=== PATIENT | male | born 1940 | race Caucasian/White ===

== ENCOUNTER 2018-03-13 20:50 | Inpatient (IN) | payer MEDICARE ==
[2018-03-13] MEDS ORDERED: ASPIRIN 325 MG TAB PO STA (21:15)
--- NOTE | 2018-03-13 21:15 | ED ---
General Adult HPI - General Chief complaint: Shortness of Breath Stated complaint: SOB Time Seen by Provider: 03/13/18 20:55 Source: patient, RN notes reviewed Mode of arrival: EMS Limitations: no limitations - History of Present Illness Initial comments: Patient is a pleasant 77-year-old male presenting to the emergency Department as a transfer from [facility]. Patient was seen there diagnosed with congestive heart failure and then transfer. Patient states he has been swelling up for the past couple of days. Patient does have cough and dyspnea. Patient has orthopnea. Dyspnea is worse with exertion. No chest pain. No history of cardiac or pulmonary disease. No fevers. Patient did have recent toe amputation - Related Data Home Medications Medication Instructions Recorded Confirmed amLODIPine [Norvasc] 10 mg PO DAILY 03/08/15 03/13/18 metFORMIN HCL 1,000 mg PO BID 03/08/15 03/13/18 Atenolol [Tenormin] 50 mg PO DAILY 10/15/16 03/13/18 Amoxic-Pot Clav 875-125Mg 1 tab PO Q12HR 03/13/18 03/13/18 [Augmentin 875-125] Cyanocobalamin [Vitamin B-12] 500 mcg PO DAILY 03/13/18 03/13/18 Doxycycline Hyclate [Vibramycin] 100 mg PO BID 03/13/18 03/13/18 Ergocalciferol [Vitamin D2] 50,000 unit PO Q7D 03/13/18 03/13/18 Furosemide [Lasix] 40 mg PO DAILY 03/13/18 03/13/18 HYDROcodone/APAP 7.5-325MG [[place] 1 tab PO TID PRN 03/13/18 03/13/18 7.5-325] INSULIN LISPRO (humaLOG) [humaLOG] 4 units SQ AC-TID 03/13/18 03/13/18 Insulin Glargine [Lantus] 12 unit SQ HS 03/13/18 03/13/18 Levothyroxine Sodium [Synthroid] 150 mcg PO DAILY 03/13/18 03/13/18 Lisinopril [Prinivil] 20 mg PO DAILY 03/13/18 03/13/18 Magnesium 200 mg PO DAILY 03/13/18 03/13/18 Spironolactone [Aldactone] 12.5 mg PO DAILY 03/13/18 03/13/18 glipiZIDE [Glucotrol] 5 mg PO DAILY 03/13/18 03/13/18 Allergies Allergy/AdvReac Type Severity Reaction Status Date / Time No Known Allergies Allergy Verified 03/13/18 21:02 Review of Systems ROS Statement: Those systems with pertinent positive or pertinent negative responses have been documented in the HPI. ROS Other: All systems not noted in ROS Statement are negative. Constitutional: Denies: fever Eyes: Denies: eye pain ENT: Denies: ear pain Respiratory: Reports: cough, dyspnea Cardiovascular: Reports: orthopnea, edema. Denies: chest pain Endocrine: Reports: fatigue Gastrointestinal: Denies: abdominal pain Genitourinary: Denies: dysuria Musculoskeletal: Denies: back pain Skin: Denies: rash Neurological: Denies: weakness Past Medical History Past Medical History: Heart Failure, Diabetes Mellitus, Hypertension, Thyroid Disorder Additional Past Medical History / Comment(s): HX POLYPS IN COLON, History of Any Multi-Drug Resistant Organisms: None Reported Past Surgical History: Appendectomy, Joint Replacement Additional Past Surgical History / Comment(s): BILATERAL KNEE REPLACEMENTS,. COLONOSCOPY. amputation of 4th and 5th toes of the left foot. Past Anesthesia/Blood Transfusion Reactions: No Reported Reaction Past Psychological History: No Psychological Hx Reported Smoking Status: Never smoker Past Alcohol Use History: Occasional Past Drug Use History: None Reported - Past Family History Mother Family Medical History: No Reported History General Exam Limitations: no limitations General appearance: alert, in no apparent distress Head exam: Present: atraumatic Eye exam: Present: normal appearance, PERRL ENT exam: Present: normal oropharynx Neck exam: Present: normal inspection Respiratory exam: Present: rales Cardiovascular Exam: Present: regular rate, normal rhythm GI/Abdominal exam: Present: soft. Absent: tenderness Extremities exam: Present: pedal edema. Absent: calf tenderness Back exam: Present: normal inspection Neurological exam: Present: alert Psychiatric exam: Present: normal affect, normal mood Skin exam: Present: normal color Course Vital Signs 03/13/18 20:51 Temperature 97.3 F L Pulse Rate 64 Respiratory 20 Rate Blood Pressure 164/70 O2 Sat by Pulse 96 Oximetry Medical Decision Making - Medical Decision Making Chart reviewed from [facility] including CT and x-ray results and lab results. Case was discussed in detail with Dr. Dorado, who will admit for hospital call. Disposition Clinical Impression: Congestive heart failure Disposition: ADMITTED IP TO THIS HOSP Referrals: Nonstaff,Physician [Primary Care Provider] - 1-2 days Decision Time: 21:15
[2018-03-13 22:22] LABS: Glucose,Whole Blood 101 mg/dL (75-99)
[2018-03-13 22:42] VITALS: BMI 26.4
[2018-03-13] MEDS ORDERED: ATENOLOL 25 MG TAB PO SCH (23:15)
[2018-03-13] MEDS ORDERED: INSULIN DETEMIR 100 UNIT/ML 10 ML VIAL SQ SCH (23:30)
[2018-03-13] MEDS: FUROSEMIDE 10 MG/ML 4 ML VIAL IV SCH (23:37)
[2018-03-13] MEDS: DOXYCYCLINE 50 MG CAP PO SCH (23:54)
[2018-03-13] MEDS: metFORMIN 500 MG TAB PO SCH (23:54)
[2018-03-13] MEDS: AMOXIC-POT CLAV 875-125MG 1 EACH TAB PO SCH (23:55)
[2018-03-14] MEDS: HYDROcodone/APAP 7.5-325MG 1 EACH TAB PO PRN ×3 (01:51→23:14)
[2018-03-14 04:30] LABS: Basophils % (A) 0 %; Eosinophils # (A) 0.2 k/uL (0-0.7); Eosinophils % (A) 2 %; HCT 29.1 % (39.0-53.0); HGB 9.7 gm/dL (13.0-17.5); Lymphocytes # (A) 1.7 k/uL (1.0-4.8); Lymphocytes % (A) 17 %; MCH 28.7 pg (25.0-35.0); MCHC 33.4 g/dL (31.0-37.0); MCV 85.9 fL (80.0-100.0); Monocytes # (A) 0.6 k/uL (0-1.0); Monocytes % (A) 6 %; Neutrophils # (A) 7.4 k/uL (1.3-7.7); Neutrophils % (A) 75 %; Platelet Count 307 k/uL (150-450); RBC 3.39 m/uL (4.30-5.90); RDW 12.8 % (11.5-15.5); WBC 9.9 k/uL (3.8-10.6)
[2018-03-14 04:38] LABS: Calcium 9.1 mg/dL (8.4-10.2); Magnesium 1.8 mg/dL (1.6-2.3); Potassium 4.1 mmol/L (3.5-5.1)
[2018-03-14 05:02] LABS: Creatine Kinase MB 2.1 ng/mL (0.0-2.4); Troponin I <0.012 ng/mL (0.000-0.034)
[2018-03-14 06:04] LABS: Glucose,Whole Blood 76 mg/dL (75-99)
[2018-03-14] MEDS: FUROSEMIDE 10 MG/ML 4 ML VIAL IV SCH ×3 (06:06→21:02)
[2018-03-14] MEDS: LEVOTHYROXINE 75 MCG TAB PO SCH (06:06)
[2018-03-14] MEDS: INSULIN ASPART 100 UNIT/ML 1 ML 10 ML VIAL SQ SCH ×3 (07:11→17:16)
[2018-03-14] MEDS: AMOXIC-POT CLAV 875-125MG 1 EACH TAB PO SCH ×2 (07:52→21:01)
[2018-03-14] MEDS: DOXYCYCLINE 50 MG CAP PO SCH ×2 (07:52→21:01)
[2018-03-14] MEDS: LISINOPRIL 20 MG TAB PO SCH (07:53)
[2018-03-14] MEDS: MAGNESIUM OXIDE 400 MG TAB PO SCH (07:53)
[2018-03-14] MEDS: glipiZIDE 5 MG TAB PO SCH (07:53)
[2018-03-14] MEDS: metFORMIN 500 MG TAB PO SCH ×2 (07:53→21:02)
[2018-03-14] MEDS: CYANOCOBALAMIN 500 MCG TAB PO SCH (07:53)
--- NOTE | 2018-03-14 08:12 | HP ---
HISTORY AND PHYSICAL CHIEF COMPLAINT: A 77-year-old white male presents under transfer [facility] for congestive heart failure. Said this has been going on for the past few days, had cough, dyspnea, orthopnea, no chest pain. No history of cardiac or pulmonary disease. Recent toe amputation by Dr. Bhat. Is admitted for worsening shortness of breath. HOME MEDICATIONS: Norvasc 10 mg daily, metformin 1000 b.i.d., Tenormin 50 daily. He has been on Augmentin 875 1 q.12 hours. B12 500 mcg daily, Vibramycin 100 b.i.d., vitamin D 52205 units every week, Lasix 40 mg daily, [place] 10/325 t.i.d., Humalog 4 units subcu a.c. t.i.d., Lantus 12 units subcu daily, Synthroid 150 mcg daily, Prinivil 20 mg daily, magnesium 200 mg daily, Aldactone 12.5 mg daily, Glucotrol 5 mg daily. ALLERGIES: Negative. REVIEW OF SYSTEMS: Fourteen point review of systems negative except for mentioned in HPI. PAST MEDICAL HISTORY: Heart failure, diabetes mellitus, hypertension, hypothyroidism. PAST SURGICAL HISTORY: Appendectomy, joint replacement. Past surgical history of bilateral knee replacement, colonoscopy, amputation of 4th, 5th toes on the left foot. SOCIAL HISTORY: Does not smoke. No alcohol. No illicit drugs. FAMILY HISTORY: Mother negative. PHYSICAL EXAM: Temp 97.3, pulse 64, respiratory 18-20, blood pressure 160s over 70s, O2 96% on room air. HEENT: Normocephalic atraumatic. Ophthalmologic: Pupils equal, round, reactive to light and accommodation. NEUROLOGIC: Alert and oriented x3. Psych: Fair mood and affect. Cardiovascular S1, S2. GI soft, nontender. Hematologic negative Homans. Vascular normal dorsalis pedis, posterior tibia, radial pulse. ASSESSMENT: 1. Congestive heart failure. 2. Acute hypertension. 3. Diabetes mellitus. 4. Peripheral vascular disease. PLAN: Cardiology is consulted. IV Lasix without pneumonia. Please see further orders. MMODL / IJN: [id number] /
[2018-03-14 08:15] LABS: Albumin 3.3 g/dL (3.5-5.0); Total Bilirubin 0.4 mg/dL (0.2-1.3); Total Protein 5.6 g/dL (6.3-8.2)
[2018-03-14] MEDS ORDERED: amLODIPine 10 MG TAB PO SCH (09:00)
[2018-03-14] MEDS ORDERED: SPIRONOLACTONE 25 MG TAB PO SCH (09:00)
[2018-03-14] MEDS ORDERED: ATENOLOL 50 MG TAB PO SCH (09:00)
[2018-03-14 11:06] LABS: Creatine Kinase MB 2.2 ng/mL (0.0-2.4); Troponin I <0.012 ng/mL (0.000-0.034)
[2018-03-14 11:58] LABS: Hemoglobin A1C 7.2 % (4.0-6.0)
[2018-03-14] MEDS ORDERED: ASPIRIN 325 MG TAB PO SCH (12:00)
--- NOTE | 2018-03-14 12:02 | XR ---
EXAMINATION TYPE: XR chest 2V DATE OF EXAM: 03/14/2018 HISTORY: congestive heart failure. REFERENCE: Chest films dated 03/13/2018. FINDINGS: There are bilateral effusions, greater on the left than the right. There is left basilar ai rspace disease. This appears to have worsened from previous. Heart size is upper limits of normal. Pu lmonary vasculature is normal. There is no interstitial change. IMPRESSION: 1. WORSENING LEFT BASILAR AIRSPACE DISEASE. 2. BILATERAL EFFUSIONS, GREATER ON THE LEFT THAN THE RIGHT.
--- NOTE | 2018-03-14 12:39 | CONS ---
DATE OF CONSULTATION: 03/14/2018 This is a 77-year-old gentleman, well known to me. The patient was seen in the office yesterday, came to the office for wound evaluation. This patient had a left foot 4th and 5th toe amputation done. The wound was healing good and the patient was about to come to follow me in the wound clinic. The patient had a congestive heart failure. The patient has been admitted. EXAMINATION: The patient's brachial, radial and femoral pulses are present. ABDOMEN: Soft, nontender. The patient has bilateral crackles in the lungs. Left foot wound is clean and draining. PLAN: We will use Aquacel Silver every 48 hours and we will continue with local wound care. When patient is stable he can be discharged from the hospital, we will follow in the wound clinic. In the meantime we will continue the local wound care dressing. ORESTES / HOLLY: [id number] / MTDD
--- NOTE | 2018-03-14 12:43 | P.CRDCN ---
History of Present Illness Consult date: 03/14/18 Requesting physician: Martin Dorado Consult reason: congestive heart failure Chief complaint: Shortness of breath and swelling History of present illness: This is a 77-year-old gentleman with history of diabetes, hypertension , hypothyroidism, who recently underwent amputation of 2 toes at [facility]. Apparently was discharged from there and has been progressively more and more short of breath and putting on a significant amount of swelling. According to the , he had been quite short of breath at the [facility] as well. He was treated with IV Lasix and breathing treatments. On discharge according to the was still quite bloated and short of breath, he was discharged with oral Lasix but not with any breathing treatments. Because he became more and more short of breath, he was seen in the primary care doctor's office to see if he could get some breathing treatments. While in the office a chest x-ray was performed which showed congestive heart failure, patient was then sent to [facility] and transferred here. A CT of the chest was performed there which revealed patchy groundglass pneumonitis bilaterally with segmental consolidation in the left lower lobe and right lower lobe with moderate sized bilateral pleural effusions. Troponin 0.017 BNP 3700 sodium 132, potassium 4.1, BUN 30, creatinine 0.4. White blood cell count 12.7, hemoglobin 9.9, platelet count 331. Blood pressure here 136/60 with a heart rate in the 60s, 97% on 3 L of oxygen. Temperature 98.2. Chest x-ray performed here showed worsening left basal air space disease with bilateral effusions greater on the left than the right. EKG shows normal sinus rhythm with nonspecific ST-T wave changes in the anterior leads. White blood cell count is normal, hemoglobin 9.7, platelet count 307. Sodium 132, potassium 4.1, BUN 27, creatinine 1.2. Magnesium 1.8. Troponins are negative 3. BNP level 3270, TSH is normal patient was initiated on IV Lasix in the emergency room. Patient still continues to feel short of breath, continues to have some peripheral edema. Does state that he is feeling somewhat better today, continues to have cough, clear sputum. Past Medical History Past Medical History: Heart Failure, Diabetes Mellitus, Hypertension, Osteoarthritis (OA), Renal Disease, Thyroid Disorder Additional Past Medical History / Comment(s): HX POLYPS IN COLON, History of Any Multi-Drug Resistant Organisms: None Reported Past Surgical History: Appendectomy, Joint Replacement Additional Past Surgical History / Comment(s): BILATERAL KNEE REPLACEMENTS,. COLONOSCOPY. amputation of 4th and 5th toes of the left foot 03/03/2018 Past Anesthesia/Blood Transfusion Reactions: No Reported Reaction Past Psychological History: No Psychological Hx Reported Smoking Status: Never smoker Past Alcohol Use History: Occasional Past Drug Use History: None Reported - Past Family History Mother Family Medical History: No Reported History Medications and Allergies Home Medications Medication Instructions Recorded Confirmed Type amLODIPine [Norvasc] 10 mg PO DAILY 03/08/15 03/13/18 History metFORMIN HCL 1,000 mg PO BID 03/08/15 03/13/18 History Atenolol [Tenormin] 50 mg PO QAM 10/15/16 03/13/18 History Amoxic-Pot Clav 875-125Mg 1 tab PO Q12HR 03/13/18 03/13/18 History [Augmentin 875-125] Atenolol [Tenormin] 25 mg PO PC-SUPPER 03/13/18 03/13/18 History Cyanocobalamin [Vitamin B-12] 500 mcg PO DAILY 03/13/18 03/13/18 History Doxycycline Hyclate [Vibramycin] 100 mg PO BID 03/13/18 03/13/18 History Furosemide [Lasix] 40 mg PO DAILY 03/13/18 03/13/18 History HYDROcodone/APAP 7.5-325MG [[place] 1 tab PO TID PRN 03/13/18 03/13/18 History 7.5-325] INSULIN LISPRO (humaLOG) [humaLOG] 4 units SQ AC-TID 03/13/18 03/13/18 History Insulin Glargine [Lantus] 12 unit SQ HS 03/13/18 03/13/18 History Levothyroxine Sodium [Synthroid] 150 mcg PO DAILY 03/13/18 03/13/18 History Lisinopril [Prinivil] 20 mg PO DAILY 03/13/18 03/13/18 History Magnesium Oxide [Mag-Ox] 250 mg PO DAILY 03/13/18 03/13/18 History Spironolactone [Aldactone] 12.5 mg PO DAILY 03/13/18 03/13/18 History glipiZIDE [Glucotrol] 5 mg PO DAILY 03/13/18 03/13/18 History Allergies Allergy/AdvReac Type Severity Reaction Status Date / Time No Known Allergies Allergy Verified 03/13/18 21:02 Physical Exam Vitals: Vital Signs Temp Pulse Pulse Resp BP BP Pulse Ox 03/14/18 11:24 60 03/14/18 11:09 98.2 F 60 18 136/64 97 03/14/18 09:05 96 03/14/18 08:00 64 03/14/18 07:51 98.4 F 64 18 150/62 96 03/14/18 04:00 98.5 F 66 18 180/75 97 03/14/18 03:26 20 03/14/18 01:18 66 20 03/13/18 21:34 97.5 F L 66 20 174/83 95 03/13/18 20:51 97.3 F L 64 20 164/70 96 Intake and Output 03/13/18 03/14/18 03/14/18 22:59 06:59 14:59 Intake Total 220 480 Output Total 1525 1000 Balance -1305 -520 Intake: IV 20 .9 20 Oral 200 480 Output: Urine 1525 1000 Other: Voiding Method Bedpan # Voids 2 Weight 78.925 kg PHYSICAL EXAMINATION: HEENT: [Head is atraumatic, normocephalic. Pupils equal, round. Neck is supple. There is elevated jugular venous pressure.] HEART EXAMINATION: [Heart S1, S2 normal. No murmur or gallop heard.] CHEST EXAMINATION: Lungs reveal scattered coarse rhonchi with diminished air entry bilaterally ABDOMEN: [ Firm, mildly distended . Bowel sounds are heard. No organomegaly noted]. EXTREMITIES:[ 2+ peripheral pulses with 1+ evidence of peripheral edema , amputation of the fourth and fifth toes on the left foot NEUROLOGIC [patient is awake, alert and oriented -3.] . Results 03/14/18 04:06 03/14/18 04:06 Cardiac Enzymes 03/14/18 03/14/18 03/14/18 Range/Units 04:06 04:06 09:51 AST 21 (17-59) U/L CK-MB (CK-2) 2.1 2.2 (0.0-2.4) ng/mL Troponin I <0.012 <0.012 (0.000-0.034) ng/mL CBC 03/14/18 Range/Units 04:06 WBC 9.9 (3.8-10.6) k/uL RBC 3.39 L (4.30-5.90) m/uL Hgb 9.7 L (13.0-17.5) gm/dL Hct 29.1 L (39.0-53.0) % Plt Count 307 (150-450) k/uL Comprehensive Metabolic Panel 03/14/18 Range/Units 04:06 Sodium 132 L (137-145) mmol/L Potassium 4.1 (3.5-5.1) mmol/L Chloride 92 L (98-107) mmol/L Carbon Dioxide 27 (22-30) mmol/L BUN 27 H (9-20) mg/dL Creatinine 1.20 (0.66-1.25) mg/dL Glucose 67 L (74-99) mg/dL Calcium 9.1 (8.4-10.2) mg/dL AST 21 (17-59) U/L ALT 37 (21-72) U/L Alkaline Phosphatase 88 (38-126) U/L Total Protein 5.6 L (6.3-8.2) g/dL Albumin 3.3 L (3.5-5.0) g/dL Current Medications Generic Name Dose Route Start Last Admin Trade Name Freq PRN Reason Stop Dose Admin Hydrocodone Bitart/Acetaminophen 1 each 03/13/18 23:14 03/14/18 01:51 [place] 7.5-325 PO 1 each TID PRN Administration Pain Amlodipine Besylate 10 mg 03/14/18 09:00 03/14/18 07:52 Norvasc PO 10 mg DAILY KELECHI Administration Amoxicillin/Clavulanate Potassium 1 each 03/13/18 23:15 03/14/18 07:52 Augmentin 875-125 PO 1 each Q12HR KELECHI Administration Aspirin 325 mg 03/14/18 12:00 03/14/18 07:54 Aspirin PO 325 mg DAILY KELECHI Administration Atenolol 25 mg 03/13/18 23:15 03/13/18 23:55 Tenormin PO 25 mg PC-SUPPER KELECHI Administration Atenolol 50 mg 03/14/18 09:00 03/14/18 07:52 Tenormin PO 50 mg QAM KELECHI Administration Cyanocobalamin 500 mcg 03/14/18 09:00 03/14/18 07:53 Vitamin B-12 PO 500 mcg DAILY KELECHI Administration Doxycycline Monohydrate 100 mg 03/13/18 23:15 03/14/18 07:52 Vibramycin PO 100 mg BID KELECHI Administration Furosemide 40 mg 03/13/18 21:15 03/14/18 06:06 Lasix IV 40 mg Q8H KELECHI Administration Glipizide 5 mg 03/14/18 09:00 03/14/18 07:53 Glucotrol PO 5 mg DAILY KELECHI Administration Insulin Aspart 4 unit 03/14/18 07:30 03/14/18 07:11 Novolog SQ 4 unit AC-TID KELECHI Administration Insulin Detemir 12 unit 03/14/18 21:00 Levemir SQ HS [facility] Levothyroxine Sodium 150 mcg 03/14/18 06:30 03/14/18 06:06 Synthroid PO 150 mcg DAILY@0630 KELECHI Administration Lisinopril 20 mg 03/14/18 09:00 03/14/18 07:53 Zestril PO 20 mg DAILY KELECHI Administration Magnesium Oxide 200 mg 03/14/18 09:00 03/14/18 07:53 Mag-Ox PO 200 mg DAILY [facility] Administration Metformin HCl 1,000 mg 03/13/18 23:15 03/14/18 07:53 Glucophage PO 1,000 mg BID KELECHI Administration Sodium Chloride 10 ml 03/14/18 09:00 03/14/18 07:53 Saline Flush IV 10 ml BID KELECHI Administration Spironolactone 12.5 mg 03/14/18 09:00 03/14/18 07:55 Aldactone PO 12.5 mg DAILY KELECHI Administration Intake and Output 03/13/18 03/14/18 03/14/18 22:59 06:59 14:59 Intake Total 220 480 Output Total 1525 1000 Balance -1305 -520 Intake: IV 20 .9 20 Oral 200 480 Output: Urine 1525 1000 Other: Voiding Method Bedpan # Voids 2 Weight 78.925 kg 03/14/18 04:06 03/14/18 04:06 EKG Interpretations (text) EKG shows normal sinus rhythm with ST-T wave changes noted in the anterior leads. Assessment and Plan Plan: Assessment and plan #1 symptoms of progressive and persistent shortness of breath, possible pneumonitis and mild congestive cardiac failure. Bilateral pleural effusions noted as well. Patient is currently on antibiotics as well as IV Lasix. #2 hypertension #3 diabetes #4 hypothyroidism # 5 recent amputation of 2 toes on the left foot Plan We will obtain an echocardiogram with Doppler study that was just done at [facility]. We will also increase the Aldactone to 25 mg daily, decrease Norvasc to 5 mg daily, decrease aspirin to 81 mg daily, discontinue atenolol and start the patient on metoprolol Succinate, continue IV Lasix, and a draining taken output along with daily weights. We will also recommend a pulmonary evaluation for possible pneumonitis. Thank you for letting us participate in the care of this patient DNP note has been reviewed, I agree with a documented findings and plan of care. Patient was seen and examined.
[2018-03-14 12:45] LABS: Glucose,Whole Blood 158 mg/dL (75-99)
[2018-03-14] MEDS: METOPROLOL SUCCINATE (ER) 25 MG TAB.ER.24H PO SCH (13:28)
--- NOTE | 2018-03-14 14:51 | US ---
EXAMINATION TYPE: US chest DATE OF EXAM: 03/14/2018 COMPARISON: 03/14/2018 CLINICAL HISTORY: 77-year-old male, monty for bilateral pleural effusion. TECHNIQUE: Multiple sonographic images of the bilateral posterior lower hemithoraces for assessment o f pleural effusions. FINDINGS: EXAM MEASUREMENTS: Right Pleural Effusion fluid pocket: 6.1 cm A/P Right skin surface to fluid distance: 3.8 cm A/P Left Pleural Effusion fluid pocket: 8.7 cm A/P with lung noted mid fluid pocket Left skin surface to fluid distance: 3.9 cm A/P Right side was marked for possible thoracentesis outside the dept. Left side was marked for possible thoracentesis outside the dept. Pulmonologists are able to review the images in the patient?s EMR. IMPRESSIONS: Moderate bilateral effusions. Markings performed.
[2018-03-14 17:14] LABS: Glucose,Whole Blood 107 mg/dL (75-99)
[2018-03-14 20:48] LABS: Glucose,Whole Blood 158 mg/dL (75-99)
[2018-03-14] MEDS: INSULIN DETEMIR 100 UNIT/ML 10 ML VIAL SQ SCH (21:53)
[2018-03-15 02:43] LABS: Glucose,Whole Blood 57 mg/dL (75-99)
[2018-03-15 03:15] LABS: Glucose,Whole Blood 86 mg/dL (75-99)
[2018-03-15] MEDS: FUROSEMIDE 10 MG/ML 4 ML VIAL IV SCH ×3 (05:12→19:53)
[2018-03-15 05:52] LABS: Glucose,Whole Blood 69 mg/dL (75-99)
[2018-03-15] MEDS: INSULIN ASPART 100 UNIT/ML 1 ML 10 ML VIAL SQ SCH ×3 (06:08→16:45)
[2018-03-15 06:11] LABS: Glucose,Whole Blood 79 mg/dL (75-99)
[2018-03-15] MEDS: LEVOTHYROXINE 75 MCG TAB PO SCH (06:11)
[2018-03-15] MEDS: amLODIPine 5 MG TAB PO SCH (07:20)
[2018-03-15] MEDS: ASPIRIN 81 MG PO SCH (07:20)
[2018-03-15] MEDS: glipiZIDE 5 MG TAB PO SCH (07:20)
[2018-03-15] MEDS: CYANOCOBALAMIN 500 MCG TAB PO SCH (07:20)
[2018-03-15] MEDS: DOXYCYCLINE 50 MG CAP PO SCH ×2 (07:20→21:30)
[2018-03-15] MEDS: AMOXIC-POT CLAV 875-125MG 1 EACH TAB PO SCH ×2 (07:20→21:29)
[2018-03-15] MEDS: metFORMIN 500 MG TAB PO SCH ×2 (07:21→21:29)
[2018-03-15] MEDS: METOPROLOL SUCCINATE (ER) 25 MG TAB.ER.24H PO SCH (07:21)
[2018-03-15] MEDS: SPIRONOLACTONE 25 MG TAB PO SCH (07:21)
[2018-03-15] MEDS: MAGNESIUM OXIDE 400 MG TAB PO SCH (07:21)
[2018-03-15] MEDS: LISINOPRIL 20 MG TAB PO SCH (07:21)
[2018-03-15] MEDS: HYDROcodone/APAP 7.5-325MG 1 EACH TAB PO PRN (10:30)
[2018-03-15 17:02] LABS: Glucose,Whole Blood 256 mg/dL (75-99)
--- NOTE | 2018-03-15 19:43 | PN ---
PROGRESS NOTE He had a chest ultrasound today which showed pleural effusion 6 cm on the right, 8.77 cm on the left. He has had a 15 pounds weight loss with fluids in the last 24-48 hours. He is feeling much better. Sugars have been in the 50s to 60s. Temp 98.2, pulse 60s, respiratory 16 to 18, blood pressure 130s over 70s, O2 97% on room air. Cardiovascular: S1-S2. Lungs rales at the bases. Hematology negative Homans. Psych fair mood and affect. Neurologic: Alert and oriented x3. PLAN: Waiting for pulmonary consult for pleural effusions and drain the fluid off the lungs. Possible discharge home after fluids drain. MMODL / IJN: [id number] /
[2018-03-15 20:48] LABS: Glucose,Whole Blood 227 mg/dL (75-99)
[2018-03-15] MEDS: INSULIN DETEMIR 100 UNIT/ML 10 ML VIAL SQ SCH (21:30)
--- NOTE | 2018-03-15 22:44 | P.CNPUL ---
History of Present Illness Consult date: 03/15/18 Reason for consult: dyspnea, cough, COPD Chief complaint: Shortness of breath, acute exacerbation of CHF likely acute on chronic sinha History of present illness: 77-year-old male seen eval examined on selective care this patient has worsening of shortness of breath for 2-3 day duration prior to that patient was hospitalized at [facility] patient underwent amputation of 2 toes at [facility], was discharged from there and has been progressively more and more short of breath and putting on a significant amount of swelling. According to the , he had been quite short of breath at the [facility] as well. He was treated with IV Lasix and breathing treatments. On discharge according to the was still quite bloated and short of breath, he was discharged with oral Lasix but not with any breathing treatments. Because he became more and more short of breath, he was seen in the primary care doctor's office to see if he could get some breathing treatments. While in the office a chest x-ray was performed which showed congestive heart failure, patient was then sent to [facility] and transferred here. A CT of the chest was performed there which revealed patchy groundglass pneumonitis bilaterally with segmental consolidation in the left lower lobe and right lower lobe with moderate sized bilateral pleural effusions. Troponin 0.017 BNP 3700 sodium 132, potassium 4.1, BUN 30, creatinine 0.4. White blood cell count 12.7, hemoglobin 9.9, platelet count 331. Blood pressure here 136/60 with a heart rate in the 60s, 97% on 3 L of oxygen. Temperature 98.2. Chest x-ray performed here showed worsening left basal air space disease with bilateral effusions greater on the left than the right. EKG shows normal sinus rhythm with nonspecific ST-T wave changes in the anterior leads. White blood cell count is normal, hemoglobin 9.7, platelet count 307. Sodium 132, potassium 4.1, BUN 27, creatinine 1.2. Magnesium 1.8. Troponins are negative 3. BNP level 3270, TSH is normal patient was initiated on IV Lasix in the emergency room. Patient still continues to feel short of breath, continues to have some peripheral edema. Does state that he is feeling somewhat better today, continues to have cough, clear sputum. Review of Systems All systems: negative Past Medical History Past Medical History: Heart Failure, Diabetes Mellitus, Hypertension, Osteoarthritis (OA), Renal Disease, Thyroid Disorder Additional Past Medical History / Comment(s): HX POLYPS IN COLON, History of Any Multi-Drug Resistant Organisms: None Reported Past Surgical History: Appendectomy, Joint Replacement Additional Past Surgical History / Comment(s): BILATERAL KNEE REPLACEMENTS,. COLONOSCOPY. amputation of 4th and 5th toes of the left foot 03/03/2018 Past Anesthesia/Blood Transfusion Reactions: No Reported Reaction Past Psychological History: No Psychological Hx Reported Smoking Status: Never smoker Past Alcohol Use History: Occasional Past Drug Use History: None Reported - Past Family History Mother Family Medical History: No Reported History Medications and Allergies Home Medications Medication Instructions Recorded Confirmed Type amLODIPine [Norvasc] 10 mg PO DAILY 03/08/15 03/13/18 History metFORMIN HCL 1,000 mg PO BID 03/08/15 03/13/18 History Atenolol [Tenormin] 50 mg PO QAM 10/15/16 03/13/18 History Amoxic-Pot Clav 875-125Mg 1 tab PO Q12HR 03/13/18 03/13/18 History [Augmentin 875-125] Atenolol [Tenormin] 25 mg PO PC-SUPPER 03/13/18 03/13/18 History Cyanocobalamin [Vitamin B-12] 500 mcg PO DAILY 03/13/18 03/13/18 History Doxycycline Hyclate [Vibramycin] 100 mg PO BID 03/13/18 03/13/18 History Furosemide [Lasix] 40 mg PO DAILY 03/13/18 03/13/18 History HYDROcodone/APAP 7.5-325MG [[place] 1 tab PO TID PRN 03/13/18 03/13/18 History 7.5-325] INSULIN LISPRO (humaLOG) [humaLOG] 4 units SQ AC-TID 03/13/18 03/13/18 History Insulin Glargine [Lantus] 12 unit SQ HS 03/13/18 03/13/18 History Levothyroxine Sodium [Synthroid] 150 mcg PO DAILY 03/13/18 03/13/18 History Lisinopril [Prinivil] 20 mg PO DAILY 03/13/18 03/13/18 History Magnesium Oxide [Mag-Ox] 250 mg PO DAILY 03/13/18 03/13/18 History Spironolactone [Aldactone] 12.5 mg PO DAILY 03/13/18 03/13/18 History glipiZIDE [Glucotrol] 5 mg PO DAILY 03/13/18 03/13/18 History Allergies Allergy/AdvReac Type Severity Reaction Status Date / Time No Known Allergies Allergy Verified 03/13/18 21:02 Physical Exam Vitals: Vital Signs Temp Pulse Resp BP Pulse Ox 03/15/18 20:27 97 03/15/18 19:45 97.3 F L 65 18 130/56 96 03/15/18 16:00 98.2 F 65 18 135/73 97 03/15/18 15:56 65 18 03/15/18 10:34 65 03/15/18 10:33 98.1 F 65 18 138/68 95 03/15/18 08:00 65 03/15/18 07:31 97 F L 65 18 133/63 96 03/15/18 03:00 97.0 F L 70 18 139/64 97 03/14/18 23:10 97.1 F L 60 18 144/65 96 Intake and Output 03/15/18 03/15/18 03/15/18 06:59 14:59 22:59 Intake Total 360 240 Output Total 1700 500 800 Balance -1700 -140 -560 Intake: Oral 360 240 Output: Urine 1700 500 800 Other: Voiding Method Urinal Urinal # Bowel Movements 2 Weight 81.2 kg PHYSICAL EXAMINATION: HEENT: Head is atraumatic, normocephalic. Pupils equal, round. Neck is supple. There is elevated jugular venous pressure. Neck is supple without any lymphadenopathy neck veins are prominent but no jugular venous distention noted HEART EXAMINATION: Heart S1, S2 normal. No murmur or gallop heard. CHEST EXAMINATION: Lungs reveal scattered coarse rhonchi with diminished air entry bilaterally ABDOMEN:Firm, mildly distended . Bowel sounds are heard. No organomegaly noted EXTREMITIES:2+ peripheral pulses with 1+ evidence of peripheral edema , amputation of the fourth and fifth toes on the left foot NEUROLOGIC, patient is awake, alert and oriented -3. Results - Laboratory Findings CBC and BMP: 03/14/18 04:06 03/14/18 04:06 Abnormal lab findings: Abnormal Labs 04/27/18 04/28/18 04/28/18 22:20 04:06 04:06 RBC 3.39 L Hgb 9.7 L Hct 29.1 L Sodium 132 L Chloride 92 L BUN 27 H Glucose 67 L POC Glucose (mg/dL) 101 H Hemoglobin A1c Total Protein 5.6 L Albumin 3.3 L 03/14/18 03/14/18 03/14/18 04:06 12:42 16:52 RBC Hgb Hct Sodium Chloride BUN Glucose POC Glucose (mg/dL) 158 H 107 H Hemoglobin A1c 7.2 H Total Protein Albumin 03/14/18 03/15/18 03/15/18 20:45 02:39 05:45 RBC Hgb Hct Sodium Chloride BUN Glucose POC Glucose (mg/dL) 158 H 57 L 69 L Hemoglobin A1c Total Protein Albumin 03/15/18 03/15/18 16:36 20:47 RBC Hgb Hct Sodium Chloride BUN Glucose POC Glucose (mg/dL) 256 H 227 H Hemoglobin A1c Total Protein Albumin - Diagnostic Findings Chest x-ray: report reviewed, image reviewed (Bilateral pleural effusion is seen with basal atelectasis more so on the left side compared to right side is confirmed on ultrasound) Assessment and Plan Assessment: Acute exacerbation of CHF likely acute on chronic systolic heart failure Bilateral pleural effusion more so on the left side compared right side patient has been responding well with IV furosemide will monitor observe for now Hypertension hypertensive cardiovascular disease Diabetes mellitus Peripheral arterial disease with gangrene of the left foot toes is status post amputation Plan: Continue diuresis Follow up on echocardiogram -We will repeat ultrasound in next 24-48 hours if no significant improvement effusion seen consider doing a thoracentesis especially if renal function worsening identified Time with Patient: Greater than 30
[2018-03-16 05:57] LABS: Basophils % (A) 0 %; Eosinophils # (A) 0.2 k/uL (0-0.7); Eosinophils % (A) 2 %; HCT 30.3 % (39.0-53.0); HGB 10.2 gm/dL (13.0-17.5); Lymphocytes # (A) 1.4 k/uL (1.0-4.8); Lymphocytes % (A) 13 %; MCH 29.2 pg (25.0-35.0); MCHC 33.8 g/dL (31.0-37.0); MCV 86.3 fL (80.0-100.0); Mean Platelet Volume 6.8; Monocytes # (A) 0.5 k/uL (0-1.0); Monocytes % (A) 5 %; Neutrophils # (A) 8.2 k/uL (1.3-7.7); Neutrophils % (A) 79 %; Platelet Count 303 k/uL (150-450); RBC 3.52 m/uL (4.30-5.90); RDW 12.7 % (11.5-15.5); WBC 10.4 k/uL (3.8-10.6)
[2018-03-16 06:00] LABS: Albumin 3.4 g/dL (3.5-5.0); Calcium 9.4 mg/dL (8.4-10.2); Potassium 3.9 mmol/L (3.5-5.1); Total Bilirubin 0.4 mg/dL (0.2-1.3); Total Protein 5.7 g/dL (6.3-8.2)
[2018-03-16 06:12] LABS: Glucose,Whole Blood 73 mg/dL (75-99)
[2018-03-16] MEDS: LEVOTHYROXINE 75 MCG TAB PO SCH (06:29)
[2018-03-16] MEDS: FUROSEMIDE 10 MG/ML 4 ML VIAL IV SCH ×3 (06:29→20:01)
[2018-03-16] MEDS: INSULIN ASPART 100 UNIT/ML 1 ML 10 ML VIAL SQ SCH ×3 (07:05→17:31)
[2018-03-16] MEDS: ASPIRIN 81 MG PO SCH (07:55)
[2018-03-16] MEDS: AMOXIC-POT CLAV 875-125MG 1 EACH TAB PO SCH ×2 (07:55→20:46)
[2018-03-16] MEDS: amLODIPine 5 MG TAB PO SCH (07:55)
[2018-03-16] MEDS: CYANOCOBALAMIN 500 MCG TAB PO SCH (07:57)
[2018-03-16] MEDS: DOXYCYCLINE MONOHYDRATE 100 MG CAPSULE PO SCH ×2 (07:57→20:48)
[2018-03-16] MEDS: LISINOPRIL 20 MG TAB PO SCH (07:58)
[2018-03-16] MEDS: glipiZIDE 5 MG TAB PO SCH (07:58)
[2018-03-16] MEDS: metFORMIN 500 MG TAB PO SCH ×2 (07:59→20:47)
[2018-03-16] MEDS: METOPROLOL SUCCINATE (ER) 25 MG TAB.ER.24H PO SCH (07:59)
[2018-03-16] MEDS: MAGNESIUM OXIDE 400 MG TAB PO SCH (07:59)
[2018-03-16] MEDS: SPIRONOLACTONE 25 MG TAB PO SCH (08:00)
--- NOTE | 2018-03-16 09:17 | PN ---
PROGRESS NOTE This patient was admitted with congestive cardiac failure and bilateral pleural effusion and possible pneumonitis. The patient is feeling much better. His breathing is improved. He has been diuresing well. Blood pressure is 130/66 mmHg. The first and second heart sounds are normal. Lungs diminished air entry. Patient's ultrasound of the chest shows bilateral pleural effusion. Awaiting Pulmonary consultation for possible thoracentesis. We will continue the patient on current medications. MMODL / IJN: [id number] /
[2018-03-16 11:41] LABS: Glucose,Whole Blood 93 mg/dL (75-99)
--- NOTE | 2018-03-16 15:00 | P.PN ---
Subjective Progress Note Date: 03/16/18 This is a 77-year-old gentleman with history of diabetes, hypertension , hypothyroidism, who recently underwent amputation of 2 toes at [facility]. Apparently was discharged from there and has been progressively more and more short of breath and putting on a significant amount of swelling. According to the , he had been quite short of breath at the [facility] as well. He was treated with IV Lasix and breathing treatments. On discharge according to the was still quite bloated and short of breath, he was discharged with oral Lasix but not with any breathing treatments. Because he became more and more short of breath, he was seen in the primary care doctor's office to see if he could get some breathing treatments. While in the office a chest x-ray was performed which showed congestive heart failure, patient was then sent to [facility] and transferred here. A CT of the chest was performed there which revealed patchy groundglass pneumonitis bilaterally with segmental consolidation in the left lower lobe and right lower lobe with moderate sized bilateral pleural effusions. Troponin 0.017 BNP 3700 sodium 132, potassium 4.1, BUN 30, creatinine 0.4. White blood cell count 12.7, hemoglobin 9.9, platelet count 331. Blood pressure here 136/60 with a heart rate in the 60s, 97% on 3 L of oxygen. Temperature 98.2. Chest x-ray performed here showed worsening left basal air space disease with bilateral effusions greater on the left than the right. EKG shows normal sinus rhythm with nonspecific ST-T wave changes in the anterior leads. White blood cell count is normal, hemoglobin 9.7, platelet count 307. Sodium 132, potassium 4.1, BUN 27, creatinine 1.2. Magnesium 1.8. Troponins are negative 3. BNP level 3270, TSH is normal patient was initiated on IV Lasix in the emergency room. Patient still continues to feel short of breath, continues to have some peripheral edema. Does state that he is feeling somewhat better today, continues to have cough, clear sputum. 03/16/2018 Patient was seen and examined this morning, diuresed well through the night last night and feeling significantly better overall today. Still has shortness of breath edema improving. Ultrasound of the chest was performed which revealed right pleural effusion a 6.1 cm and left pleural effusion of 8.7 cm. Patient was marked for possible thoracentesis. Blood pressure 140/60 with a heart rate in the 60s. He will globin 10.2, sodium 135, potassium 3.9, BUN 24, creatinine 1.1 Objective - Vital Signs Vital signs: Vital Signs Temp 97.1 F L 03/16/18 12:00 Pulse 62 03/16/18 12:00 Resp 16 03/16/18 12:00 BP 140/65 03/16/18 12:00 Pulse Ox 99 03/16/18 12:00 Intake & Output 03/15/18 03/16/18 03/16/18 18:59 06:59 18:59 Intake Total 360 490 480 Output Total 1300 1600 850 Balance -940 -1110 -370 Weight 77 kg Intake: IV 10 .9 10 Oral 360 480 480 Output: Urine 1300 1600 850 Other: Voiding Method Toilet Toilet Urinal Urinal # Voids 1 # Bowel Movements 2 - Exam PHYSICAL EXAMINATION: HEENT: Head is atraumatic, normocephalic. Pupils equal, round. Neck is supple. There is no elevated jugular venous pressure. HEART EXAMINATION: Heart S1, S2 normal. No murmur or gallop heard. CHEST EXAMINATION: Lungs reveal diminished air entry bilaterally, left greater than right. ABDOMEN: Soft, nontender. Bowel sounds are heard. No organomegaly noted. EXTREMITIES: 2+ peripheral pulses with 1+ evidence of peripheral edema and no calf tenderness noted. NEUROLOGIC patient is awake, alert and oriented -3. . - Labs CBC & Chem 7: 03/16/18 05:34 03/16/18 05:34 Labs: Abnormal Lab Results - Last 24 Hours (Table) 03/15/18 03/15/18 03/16/18 Range/Units 16:36 20:47 05:34 RBC 3.52 L (4.30-5.90) m/uL Hgb 10.2 L (13.0-17.5) gm/dL Hct 30.3 L (39.0-53.0) % Neutrophils # 8.2 H (1.3-7.7) k/uL Sodium (137-145) mmol/L Chloride (98-107) mmol/L Carbon Dioxide (22-30) mmol/L BUN (9-20) mg/dL Glucose (74-99) mg/dL POC Glucose (mg/dL) 256 H 227 H (75-99) mg/dL Total Protein (6.3-8.2) g/dL Albumin (3.5-5.0) g/dL 03/16/18 03/16/18 Range/Units 05:34 06:10 RBC (4.30-5.90) m/uL Hgb (13.0-17.5) gm/dL Hct (39.0-53.0) % Neutrophils # (1.3-7.7) k/uL Sodium 135 L (137-145) mmol/L Chloride 91 L (98-107) mmol/L Carbon Dioxide 31 H (22-30) mmol/L BUN 24 H (9-20) mg/dL Glucose 61 L (74-99) mg/dL POC Glucose (mg/dL) 73 L (75-99) mg/dL Total Protein 5.7 L (6.3-8.2) g/dL Albumin 3.4 L (3.5-5.0) g/dL Assessment and Plan Plan: Assessment and plan #1 symptoms of progressive and persistent shortness of breath, possible pneumonitis and mild congestive cardiac failure diastolic acute on chronic. Bilateral pleural effusions noted as well. Patient is currently on antibiotics as well as IV Lasix. #2 hypertension #3 diabetes #4 hypothyroidism # 5 recent amputation of 2 toes on the left foot Plan Patient did undergo an ultrasound of the chest, marked for possible thoracentesis. We will continue current dose of IV Lasix check lytes BUN and creatinine in the morning. Review echocardiogram with Doppler study. DNP note has been reviewed, I agree with a documented findings and plan of care. Patient was seen and examined.
[2018-03-16 16:30] LABS: Glucose,Whole Blood 187 mg/dL (75-99)
[2018-03-16] MEDS: HYDROcodone/APAP 7.5-325MG 1 EACH TAB PO PRN (18:26)
--- NOTE | 2018-03-16 18:33 | P.PN ---
Subjective Progress Note Date: 03/16/18 Principal diagnosis: Bilateral pleural effusion, acute exacerbation of CHF likely acute on chronic diastolic and systolic heart failure, peripheral arterial disease, hypertension hypertensive cardiovascular disease, type 2 diabetes mellitus, stage III renal failure chronic 03/16/2018, patient seen eval examined during the rounds clinically patient is doing slightly better with improved respiratory status denies any cough or sputum production denies any chest pain white cell count remains normal no evidence of fever is seen patient is responding well with diuretics have lost 20 -25 pounds with diuresis, ultrasound finding reviewed given that patient has been responding very well will repeat the ultrasound before consideration of thoracentesis 77-year-old male seen eval examined on selective care this patient has worsening of shortness of breath for 2-3 day duration prior to that patient was hospitalized at [facility] patient underwent amputation of 2 toes at [facility], was discharged from there and has been progressively more and more short of breath and putting on a significant amount of swelling. According to the , he had been quite short of breath at the [facility] as well. He was treated with IV Lasix and breathing treatments. On discharge according to the was still quite bloated and short of breath, he was discharged with oral Lasix but not with any breathing treatments. Because he became more and more short of breath, he was seen in the primary care doctor's office to see if he could get some breathing treatments. While in the office a chest x-ray was performed which showed congestive heart failure, patient was then sent to [facility] and transferred here. A CT of the chest was performed there which revealed patchy groundglass pneumonitis bilaterally with segmental consolidation in the left lower lobe and right lower lobe with moderate sized bilateral pleural effusions. Troponin 0.017 BNP 3700 sodium 132, potassium 4.1, BUN 30, creatinine 0.4. White blood cell count 12.7, hemoglobin 9.9, platelet count 331. Blood pressure here 136/60 with a heart rate in the 60s, 97% on 3 L of oxygen. Temperature 98.2. Chest x-ray performed here showed worsening left basal air space disease with bilateral effusions greater on the left than the right. EKG shows normal sinus rhythm with nonspecific ST-T wave changes in the anterior leads. White blood cell count is normal, hemoglobin 9.7, platelet count 307. Sodium 132, potassium 4.1, BUN 27, creatinine 1.2. Magnesium 1.8. Troponins are negative 3. BNP level 3270, TSH is normal patient was initiated on IV Lasix in the emergency room. Patient still continues to feel short of breath, continues to have some peripheral edema. Does state that he is feeling somewhat better today, continues to have cough, clear sputum. Objective - Vital Signs Vital signs: Vital Signs Temp 97.1 F L 03/16/18 16:00 Pulse 64 03/16/18 16:00 Resp 18 03/16/18 16:00 BP 138/66 03/16/18 16:00 Pulse Ox 98 03/16/18 16:00 Intake & Output 03/15/18 03/16/18 03/16/18 18:59 06:59 18:59 Intake Total 360 490 480 Output Total 1300 1600 1200 Balance -940 -1110 -720 Weight 77 kg Intake: IV 10 .9 10 Oral 360 480 480 Output: Urine 1300 1600 1200 Other: Voiding Method Toilet Toilet Urinal Urinal # Voids 1 # Bowel Movements 2 - Exam HEENT: Head is atraumatic, normocephalic. Pupils equal, round. Neck is supple. There is elevated jugular venous pressure. Neck is supple without any lymphadenopathy neck veins are prominent but no jugular venous distention noted HEART EXAMINATION: Heart S1, S2 normal. No murmur or gallop heard. CHEST EXAMINATION: Lungs reveal scattered coarse rhonchi with diminished air entry bilaterally ABDOMEN:Firm, mildly distended . Bowel sounds are heard. No organomegaly noted EXTREMITIES:2+ peripheral pulses with 1+ evidence of peripheral edema , amputation of the fourth and fifth toes on the left foot - Labs CBC & Chem 7: 03/16/18 05:34 03/16/18 05:34 Labs: Abnormal Lab Results - Last 24 Hours (Table) 03/15/18 03/16/18 03/16/18 Range/Units 20:47 05:34 05:34 RBC 3.52 L (4.30-5.90) m/uL Hgb 10.2 L (13.0-17.5) gm/dL Hct 30.3 L (39.0-53.0) % Neutrophils # 8.2 H (1.3-7.7) k/uL Sodium 135 L (137-145) mmol/L Chloride 91 L (98-107) mmol/L Carbon Dioxide 31 H (22-30) mmol/L BUN 24 H (9-20) mg/dL Glucose 61 L (74-99) mg/dL POC Glucose (mg/dL) 227 H (75-99) mg/dL Total Protein 5.7 L (6.3-8.2) g/dL Albumin 3.4 L (3.5-5.0) g/dL 03/16/18 03/16/18 Range/Units 06:10 16:24 RBC (4.30-5.90) m/uL Hgb (13.0-17.5) gm/dL Hct (39.0-53.0) % Neutrophils # (1.3-7.7) k/uL Sodium (137-145) mmol/L Chloride (98-107) mmol/L Carbon Dioxide (22-30) mmol/L BUN (9-20) mg/dL Glucose (74-99) mg/dL POC Glucose (mg/dL) 73 L 187 H (75-99) mg/dL Total Protein (6.3-8.2) g/dL Albumin (3.5-5.0) g/dL Assessment and Plan Assessment: Acute exacerbation of CHF likely acute on chronic systolic heart failure Bilateral pleural effusion more so on the left side compared right side patient has been responding well with IV furosemide will monitor observe for now Hypertension hypertensive cardiovascular disease Diabetes mellitus Peripheral arterial disease with gangrene of the left foot toes is status post amputation Plan: Continue diuresis Follow up on echocardiogram -We will repeat ultrasound in next 24-48 hours if no significant improvement effusion seen consider doing a thoracentesis especially if renal function worsening identified Time with Patient: Greater than 30
[2018-03-16] MEDS: INSULIN DETEMIR 100 UNIT/ML 10 ML VIAL SQ SCH (20:48)
[2018-03-16 21:04] LABS: Glucose,Whole Blood 221 mg/dL (75-99)
--- NOTE | 2018-03-16 22:29 | PN ---
PROGRESS NOTE SUBJECTIVE: This is a white male, 77 years old, with bilateral pleural effusion, acute exacerbation of CHF, diastolic and systolic, hypertensive heart, peripheral vascular disease, hypertensive cardiovascular disease, type 2 diabetes mellitus, stage III renal failure, who is greatly better with his breathing. No fever or chills. He has lost 20 to 25 pounds. Ultrasound is going to be repeated prior to thoracentesis. Temperature 97.1, pulse 60 to 64, respiratory 16 to 18, blood pressure 136/66, oxygen 98% on room air. CARDIOVASCULAR: S1, S2. LUNGS: Clear. Rales at the base. GI: Soft. HEMATOLOGY: Negative Homans. ASSESSMENT: 1. Acute exacerbation of congestive heart failure, acute on chronic systolic heart failure. 2. Bilateral pleural effusion. IV furosemide. 3. Hypertensive cardiovascular disease. 4. Diabetes mellitus. 5. Peripheral artery disease. Continue diuresis. Check echo. Check ultrasound for possible thoracentesis. MMODL / IJN: [id number] /
[2018-03-17 06:07] LABS: Glucose,Whole Blood 82 mg/dL (75-99)
[2018-03-17] MEDS: LEVOTHYROXINE 75 MCG TAB PO SCH (06:09)
[2018-03-17] MEDS: FUROSEMIDE 10 MG/ML 4 ML VIAL IV SCH ×2 (06:09→13:06)
[2018-03-17] MEDS: INSULIN ASPART 100 UNIT/ML 1 ML 10 ML VIAL SQ SCH ×3 (06:58→18:02)
--- NOTE | 2018-03-17 08:09 | XR ---
EXAMINATION TYPE: XR chest 2V DATE OF EXAM: 03/17/2018 COMPARISON: Chest x-ray from 3 days ago. HISTORY: CHF progress study TECHNIQUE: Frontal and lateral views of the chest are obtained. FINDINGS: There are persistent tiny bilateral pleural effusions improved from prior seen best on lat eral view. There is no new suspicious focal airspace opacity or pneumothorax seen bilaterally. The ca rdiac silhouette size is stable and within normal limits with atherosclerotic change in aortic knob. Moderate spurring and joint space loss bilateral acromioclavicular joints is redemonstrated. IMPRESSION: Tiny bilateral pleural effusions improved from prior.
--- NOTE | 2018-03-17 08:20 | US ---
EXAMINATION TYPE: US chest DATE OF EXAM: 03/17/2018 COMPARISON: Recent ultrasound 3 days ago, XRAY earlier today and older study 3 days ago. CLINICAL HISTORY: pleural effusion. EXAM MEASUREMENTS: Right Pleural Effusion fluid pocket: 1.3 cm Right skin to fluid thickness: 2.7 cm Left Pleural Effusion fluid pocket: 5.9 cm Left skin to fluid thickness: 3.0 cm Right side NOT marked for possible thoracentesis outside the dept. Left side marked for possible thoracentesis outside the dept. Pulmonologists are able to review the images in the patient?s EMR. On the 4 images saved there are tiny left greater than right pleural effusions that are both signific antly improved from 3 days earlier. Do not feel there is enough fluid to warrant safe thoracentesis i n either lung currently despite technologist marking left side. I called forensic technician to make koreyo r aware of this. IMPRESSIONS: As above
[2018-03-17] MEDS: amLODIPine 5 MG TAB PO SCH (10:25)
[2018-03-17] MEDS: AMOXIC-POT CLAV 875-125MG 1 EACH TAB PO SCH ×2 (10:25→20:33)
[2018-03-17] MEDS: glipiZIDE 5 MG TAB PO SCH (10:25)
[2018-03-17] MEDS: metFORMIN 500 MG TAB PO SCH ×2 (10:25→20:33)
[2018-03-17] MEDS: ASPIRIN 81 MG PO SCH (10:25)
[2018-03-17] MEDS: LISINOPRIL 20 MG TAB PO SCH (10:25)
[2018-03-17] MEDS: DOXYCYCLINE MONOHYDRATE 100 MG CAPSULE PO SCH ×2 (10:25→20:33)
[2018-03-17] MEDS: SPIRONOLACTONE 25 MG TAB PO SCH (10:26)
[2018-03-17] MEDS: MAGNESIUM OXIDE 400 MG TAB PO SCH (10:26)
[2018-03-17] MEDS: METOPROLOL SUCCINATE (ER) 25 MG TAB.ER.24H PO SCH (10:26)
[2018-03-17] MEDS: CYANOCOBALAMIN 500 MCG TAB PO SCH (10:26)
--- NOTE | 2018-03-17 10:42 | ECHOF ---
Referral Reason:chf MEASUREMENTS -------- HEIGHT: 172.7 cm WEIGHT: 76.7 kg BP: 140/65 IVSd: 0.9 cm (0.6 - 1.1) LVIDd: 5.0 cm (3.9 - 5.3) LVPWd: 0.8 cm (0.6 - 1.1) IVSs: 1.8 cm LVIDs: 2.7 cm LVPWs: 1.3 cm LAESV Index (A-L): 22.05 ml/m Ao Diam: 3.3 cm (2.0 - 3.7) AV Cusp: 1.7 cm (1.5 - 2.6) LA Diam: 4.0 cm (2.7 - 3.8) MV EXCURSION: 27.072 mm (> 18.000) MV EF SLOPE: 83 mm/s (70 - 150) EPSS: 1.9 cm MV E Jonatan: 1.13 m/s MV DecT: 272 ms MV A Jonatan: 0.96 m/s MV E/A Ratio: 1.17 RAP: 5.00 mmHg RVSP: 15.50 mmHg FINDINGS -------- Sinus rhythm. This was a technically good study. The left ventricular size is normal. Left ventricular wall thickness is normal. Overall left vent ricular systolic function is normal with, an EF between 55 - 60 %. The right ventricle is normal in size and function. Normal LA size by volume 22+/-6 ml/m2. The right atrium is normal in size. The aortic valve is trileaflet, and appears structurally normal. No aortic stenosis or regurgitation. The mitral valve leaflets are mildly thickened. Mild mitral regurgitation is present. Mild tricuspid regurgitation present. The right ventricular systolic pressure, as measured by Doppl er, is 15.50mmHg. Pulmonic valve appears structurally normal. The aortic root size is normal. Normal inferior vena cava with normal inspiratory collapse consistent with estimated right atrial pre ssure of 5 mmHg. Echo free space indicative of a pericardial fat pad. CONCLUSIONS -------- 1. Sinus rhythm. 2. This was a technically good study. 3. The left ventricular size is normal. 4. Left ventricular wall thickness is normal. 5. Overall left ventricular systolic function is normal with, an EF between 55 - 60 %. 6. The right ventricle is normal in size and function. 7. Normal LA size by volume 22+/-6 ml/m2. 8. The right atrium is normal in size. 9. The aortic valve is trileaflet, and appears structurally normal. No aortic stenosis or regurgitati on. 10. The mitral valve leaflets are mildly thickened. 11. Mild mitral regurgitation is present. 12. Mild tricuspid regurgitation present. 13. The right ventricular systolic pressure, as measured by Doppler, is 15.50mmHg. 14. Pulmonic valve appears structurally normal. 15. The aortic root size is normal. 16. Normal inferior vena cava with normal inspiratory collapse consistent with estimated right atrial pressure of 5 mmHg. 17. Echo free space indicative of a pericardial fat pad. LAY OUT CARPENTER: Dara Estrada RDCS
[2018-03-17 16:37] LABS: Glucose,Whole Blood 246 mg/dL (75-99)
--- NOTE | 2018-03-17 17:13 | P.PN ---
Subjective Progress Note Date: 03/17/18 This is a 77-year-old gentleman with history of diabetes, hypertension , hypothyroidism, who recently underwent amputation of 2 toes at [facility]. Apparently was discharged from there and has been progressively more and more short of breath and putting on a significant amount of swelling. According to the , he had been quite short of breath at the [facility] as well. He was treated with IV Lasix and breathing treatments. On discharge according to the was still quite bloated and short of breath, he was discharged with oral Lasix but not with any breathing treatments. Because he became more and more short of breath, he was seen in the primary care doctor's office to see if he could get some breathing treatments. While in the office a chest x-ray was performed which showed congestive heart failure, patient was then sent to [facility] and transferred here. A CT of the chest was performed there which revealed patchy groundglass pneumonitis bilaterally with segmental consolidation in the left lower lobe and right lower lobe with moderate sized bilateral pleural effusions. Troponin 0.017 BNP 3700 sodium 132, potassium 4.1, BUN 30, creatinine 0.4. White blood cell count 12.7, hemoglobin 9.9, platelet count 331. Blood pressure here 136/60 with a heart rate in the 60s, 97% on 3 L of oxygen. Temperature 98.2. Chest x-ray performed here showed worsening left basal air space disease with bilateral effusions greater on the left than the right. EKG shows normal sinus rhythm with nonspecific ST-T wave changes in the anterior leads. White blood cell count is normal, hemoglobin 9.7, platelet count 307. Sodium 132, potassium 4.1, BUN 27, creatinine 1.2. Magnesium 1.8. Troponins are negative 3. BNP level 3270, TSH is normal patient was initiated on IV Lasix in the emergency room. Patient still continues to feel short of breath, continues to have some peripheral edema. Does state that he is feeling somewhat better today, continues to have cough, clear sputum. 03/16/2018 Patient was seen and examined this morning, diuresed well through the night last night and feeling significantly better overall today. Still has shortness of breath edema improving. Ultrasound of the chest was performed which revealed right pleural effusion a 6.1 cm and left pleural effusion of 8.7 cm. Patient was marked for possible thoracentesis. Blood pressure 140/60 with a heart rate in the 60s. He will globin 10.2, sodium 135, potassium 3.9, BUN 24, creatinine 1.1 03/17/2018 Patient seen and examined this morning, feeling significantly better, continues to diurese well, chest x-ray shows significant improvement. We will discontinue the IV Lasix today and start the patient on oral diuretics. Plan for possible discharge home in the morning if stable. Objective - Vital Signs Vital signs: Vital Signs Temp 97.1 F L 03/17/18 08:00 Pulse 69 03/17/18 12:00 Resp 18 03/17/18 12:00 BP 139/63 03/17/18 12:00 Pulse Ox 98 03/17/18 12:00 Intake & Output 03/16/18 03/17/18 03/17/18 18:59 06:59 18:59 Intake Total 480 716 Output Total 1200 900 Balance -720 -900 716 Weight 75.2 kg Intake: Oral 480 716 Output: Urine 1200 900 Other: Voiding Method Toilet Toilet Toilet Urinal Urinal Urinal # Voids 1 1 # Bowel Movements 1 - Exam PHYSICAL EXAMINATION: HEENT: Head is atraumatic, normocephalic. Pupils equal, round. Neck is supple. There is no elevated jugular venous pressure. HEART EXAMINATION: Heart S1, S2 normal. No murmur or gallop heard. CHEST EXAMINATION: Lungs reveal diminished air entry bilaterally, left greater than right. ABDOMEN: Soft, nontender. Bowel sounds are heard. No organomegaly noted. EXTREMITIES: 2+ peripheral pulses with 1+ evidence of peripheral edema and no calf tenderness noted. NEUROLOGIC patient is awake, alert and oriented -3. . - Labs CBC & Chem 7: 03/16/18 05:34 03/16/18 05:34 Labs: Abnormal Lab Results - Last 24 Hours (Table) 03/16/18 03/17/18 Range/Units 21:01 16:35 POC Glucose (mg/dL) 221 H 246 H (75-99) mg/dL Assessment and Plan Plan: Assessment and plan #1 symptoms of progressive and persistent shortness of breath, possible pneumonitis and mild congestive cardiac failure diastolic acute on chronic. Bilateral pleural effusions noted as well. Patient is currently on antibiotics as well as IV Lasix. #2 hypertension #3 diabetes #4 hypothyroidism # 5 recent amputation of 2 toes on the left foot Plan We will discontinue the IV Lasix and start the patient on oral diuretics today. Check lytes BUN and creatinine in the morning. DNP note has been reviewed, I agree with a documented findings and plan of care. Patient was seen and examined.
[2018-03-17] MEDS: FUROSEMIDE 40 MG TAB PO SCH (18:02)
--- NOTE | 2018-03-17 18:42 | P.PN ---
Subjective Progress Note Date: 03/17/18 Principal diagnosis: Bilateral pleural effusion, acute exacerbation of CHF likely acute on chronic diastolic and systolic heart failure, peripheral arterial disease, hypertension hypertensive cardiovascular disease, type 2 diabetes mellitus, stage III renal failure chronic 03/17/2018, patient seen eval examined during the rounds clinically patient has been doing well awake and alert breathing comfortably cuff congestion shortness of breath has been stable swelling in the lower extremity has improved as well the ultrasound of the chest performed has been reviewed very small amount of pleural fluid has been noted not enough to tap, these findings reviewed with the patient and present bedside at length 03/16/2018, patient seen eval examined during the rounds clinically patient is doing slightly better with improved respiratory status denies any cough or sputum production denies any chest pain white cell count remains normal no evidence of fever is seen patient is responding well with diuretics have lost 20 -25 pounds with diuresis, ultrasound finding reviewed given that patient has been responding very well will repeat the ultrasound before consideration of thoracentesis 77-year-old male seen eval examined on selective care this patient has worsening of shortness of breath for 2-3 day duration prior to that patient was hospitalized at [facility] patient underwent amputation of 2 toes at [facility], was discharged from there and has been progressively more and more short of breath and putting on a significant amount of swelling. According to the , he had been quite short of breath at the [facility] as well. He was treated with IV Lasix and breathing treatments. On discharge according to the was still quite bloated and short of breath, he was discharged with oral Lasix but not with any breathing treatments. Because he became more and more short of breath, he was seen in the primary care doctor's office to see if he could get some breathing treatments. While in the office a chest x-ray was performed which showed congestive heart failure, patient was then sent to [facility] and transferred here. A CT of the chest was performed there which revealed patchy groundglass pneumonitis bilaterally with segmental consolidation in the left lower lobe and right lower lobe with moderate sized bilateral pleural effusions. Troponin 0.017 BNP 3700 sodium 132, potassium 4.1, BUN 30, creatinine 0.4. White blood cell count 12.7, hemoglobin 9.9, platelet count 331. Blood pressure here 136/60 with a heart rate in the 60s, 97% on 3 L of oxygen. Temperature 98.2. Chest x-ray performed here showed worsening left basal air space disease with bilateral effusions greater on the left than the right. EKG shows normal sinus rhythm with nonspecific ST-T wave changes in the anterior leads. White blood cell count is normal, hemoglobin 9.7, platelet count 307. Sodium 132, potassium 4.1, BUN 27, creatinine 1.2. Magnesium 1.8. Troponins are negative 3. BNP level 3270, TSH is normal patient was initiated on IV Lasix in the emergency room. Patient still continues to feel short of breath, continues to have some peripheral edema. Does state that he is feeling somewhat better today, continues to have cough, clear sputum. Objective - Vital Signs Vital signs: Vital Signs Temp 97.1 F L 03/17/18 08:00 Pulse 69 03/17/18 12:00 Resp 18 03/17/18 12:00 BP 139/63 03/17/18 12:00 Pulse Ox 98 03/17/18 12:00 Intake & Output 03/16/18 03/17/18 03/17/18 18:59 06:59 18:59 Intake Total 480 952 Output Total 1200 900 Balance -720 -900 952 Weight 75.2 kg Intake: Oral 480 952 Output: Urine 1200 900 Other: Voiding Method Toilet Toilet Toilet Urinal Urinal Urinal # Voids 1 1 # Bowel Movements 1 - Exam HEENT: Head is atraumatic, normocephalic. Pupils equal, round. Neck is supple. There is elevated jugular venous pressure. Neck is supple without any lymphadenopathy neck veins are prominent but no jugular venous distention noted HEART EXAMINATION: Heart S1, S2 normal. No murmur or gallop heard. CHEST EXAMINATION: Lungs reveal scattered coarse rhonchi with diminished air entry bilaterally ABDOMEN:Firm, mildly distended . Bowel sounds are heard. No organomegaly noted EXTREMITIES:2+ peripheral pulses with 1+ evidence of peripheral edema , amputation of the fourth and fifth toes on the left foot - Labs CBC & Chem 7: 03/16/18 05:34 03/16/18 05:34 Labs: Abnormal Lab Results - Last 24 Hours (Table) 03/16/18 03/17/18 Range/Units 21:01 16:35 POC Glucose (mg/dL) 221 H 246 H (75-99) mg/dL Assessment and Plan Assessment: Acute exacerbation of CHF likely acute on chronic systolic heart failure Bilateral pleural effusion more so on the left side compared right side patient has been responding well with IV furosemide will monitor observe for now, no plans for thoracentesis Hypertension hypertensive cardiovascular disease Diabetes mellitus Peripheral arterial disease with gangrene of the left foot toes is status post amputation Plan: Continue diuresis Follow up on echocardiogram -Reviewed ultrasound finding Continue supportive care Do deep breathing sense incentive spirometry Recommendations pending plan of care as per clinical response of the patient Time with Patient: Greater than 30
[2018-03-17] MEDS: HYDROcodone/APAP 7.5-325MG 1 EACH TAB PO PRN (20:47)
[2018-03-17 20:49] LABS: Glucose,Whole Blood 105 mg/dL (75-99)
[2018-03-17] MEDS: INSULIN DETEMIR 100 UNIT/ML 10 ML VIAL SQ SCH (20:59)
[2018-03-17] MEDS ORDERED: IBUPROFEN 400 MG TAB PO PRN (23:30)
[2018-03-18 05:38] LABS: Glucose,Whole Blood 75 mg/dL (75-99)
[2018-03-18] MEDS: INSULIN ASPART 100 UNIT/ML 1 ML 10 ML VIAL SQ SCH ×2 (05:49→12:52)
[2018-03-18] MEDS: LEVOTHYROXINE 75 MCG TAB PO SCH (05:55)
--- NOTE | 2018-03-18 07:36 | PN ---
PROGRESS NOTE SUBJECTIVE: A 77-year-old white male with congestive heart failure greatly improving with breathing. Ultrasound will be done of the chest today to see about possible pleural effusion tapping prior to being discharged. Continue with PT, OT, physical therapy and possible discharge home in the next 24-48 hours. MMADAM / HOLLY: [id number] /
[2018-03-18 09:05] VITALS: TEMP 97.2
[2018-03-18] MEDS: amLODIPine 5 MG TAB PO SCH (09:16)
[2018-03-18] MEDS: glipiZIDE 5 MG TAB PO SCH (09:17)
[2018-03-18] MEDS: MAGNESIUM OXIDE 400 MG TAB PO SCH (09:17)
[2018-03-18] MEDS: METOPROLOL SUCCINATE (ER) 25 MG TAB.ER.24H PO SCH (09:17)
[2018-03-18] MEDS: SPIRONOLACTONE 25 MG TAB PO SCH (09:17)
[2018-03-18] MEDS: LISINOPRIL 20 MG TAB PO SCH (09:17)
[2018-03-18] MEDS: metFORMIN 500 MG TAB PO SCH (09:17)
[2018-03-18] MEDS: FUROSEMIDE 40 MG TAB PO SCH (09:17)
[2018-03-18] MEDS: ASPIRIN 81 MG PO SCH (09:17)
[2018-03-18] MEDS: AMOXIC-POT CLAV 875-125MG 1 EACH TAB PO SCH (09:17)
[2018-03-18] MEDS: DOXYCYCLINE MONOHYDRATE 100 MG CAPSULE PO SCH (09:18)
[2018-03-18] MEDS: CYANOCOBALAMIN 500 MCG TAB PO SCH (09:18)
--- NOTE | 2018-03-18 10:52 | P.PN ---
Subjective Progress Note Date: 03/18/18 This is a 77-year-old gentleman with history of diabetes, hypertension , hypothyroidism, who recently underwent amputation of 2 toes at [facility]. Apparently was discharged from there and has been progressively more and more short of breath and putting on a significant amount of swelling. According to the , he had been quite short of breath at the [facility] as well. He was treated with IV Lasix and breathing treatments. On discharge according to the was still quite bloated and short of breath, he was discharged with oral Lasix but not with any breathing treatments. Because he became more and more short of breath, he was seen in the primary care doctor's office to see if he could get some breathing treatments. While in the office a chest x-ray was performed which showed congestive heart failure, patient was then sent to [facility] and transferred here. A CT of the chest was performed there which revealed patchy groundglass pneumonitis bilaterally with segmental consolidation in the left lower lobe and right lower lobe with moderate sized bilateral pleural effusions. Troponin 0.017 BNP 3700 sodium 132, potassium 4.1, BUN 30, creatinine 0.4. White blood cell count 12.7, hemoglobin 9.9, platelet count 331. Blood pressure here 136/60 with a heart rate in the 60s, 97% on 3 L of oxygen. Temperature 98.2. Chest x-ray performed here showed worsening left basal air space disease with bilateral effusions greater on the left than the right. EKG shows normal sinus rhythm with nonspecific ST-T wave changes in the anterior leads. White blood cell count is normal, hemoglobin 9.7, platelet count 307. Sodium 132, potassium 4.1, BUN 27, creatinine 1.2. Magnesium 1.8. Troponins are negative 3. BNP level 3270, TSH is normal patient was initiated on IV Lasix in the emergency room. Patient still continues to feel short of breath, continues to have some peripheral edema. Does state that he is feeling somewhat better today, continues to have cough, clear sputum. 03/16/2018 Patient was seen and examined this morning, diuresed well through the night last night and feeling significantly better overall today. Still has shortness of breath edema improving. Ultrasound of the chest was performed which revealed right pleural effusion a 6.1 cm and left pleural effusion of 8.7 cm. Patient was marked for possible thoracentesis. Blood pressure 140/60 with a heart rate in the 60s. He will globin 10.2, sodium 135, potassium 3.9, BUN 24, creatinine 1.1 03/17/2018 Patient seen and examined this morning, feeling significantly better, continues to diurese well, chest x-ray shows significant improvement. We will discontinue the IV Lasix today and start the patient on oral diuretics. Plan for possible discharge home in the morning if stable. 03/18/2018 Patient was seen and examined this morning, feeling well, blood pressure 162/70 heart rate in the 60s, weight down 0.2 kg today. Labs are pending. Objective - Vital Signs Vital signs: Vital Signs Temp 97.2 F L 03/18/18 08:00 Pulse 67 03/18/18 08:00 Resp 16 03/18/18 08:00 BP 163/72 03/18/18 08:00 Pulse Ox 98 03/18/18 08:00 Intake & Output 03/17/18 03/18/18 03/18/18 18:59 06:59 18:59 Intake Total 952 490 360 Output Total 800 400 Balance 952 -310 -40 Weight 75 kg Intake: IV 10 .9 10 Oral 952 480 360 Output: Urine 800 400 Other: Voiding Method Toilet Toilet Toilet Urinal Urinal Urinal # Voids 1 # Bowel Movements 1 1 - Exam PHYSICAL EXAMINATION: HEENT: Head is atraumatic, normocephalic. Pupils equal, round. Neck is supple. There is no elevated jugular venous pressure. HEART EXAMINATION: Heart S1, S2 normal. No murmur or gallop heard. CHEST EXAMINATION: Lungs reveal diminished air entry bilaterally, left greater than right. ABDOMEN: Soft, nontender. Bowel sounds are heard. No organomegaly noted. EXTREMITIES: 2+ peripheral pulses with trace evidence of peripheral edema and no calf tenderness noted. NEUROLOGIC patient is awake, alert and oriented -3. . - Labs CBC & Chem 7: 03/16/18 05:34 03/16/18 05:34 Labs: Abnormal Lab Results - Last 24 Hours (Table) 03/17/18 03/17/18 Range/Units 16:35 20:48 POC Glucose (mg/dL) 246 H 105 H (75-99) mg/dL Microbiology - Last 24 Hours (Table) 03/17/18 19:46 Stool Culture - Preliminary Stool Assessment and Plan Plan: Assessment and plan #1 symptoms of progressive and persistent shortness of breath, possible pneumonitis and mild congestive cardiac failure diastolic acute on chronic. Bilateral pleural effusions noted as well. Patient is currently on antibiotics as well as IV Lasix. #2 hypertension #3 diabetes #4 hypothyroidism # 5 recent amputation of 2 toes on the left foot Plan Patient may be discharged home today from cardiology's perspective, we'll make a follow-up appointment in the office 2 weeks post discharge. DNP note has been reviewed, I agree with a documented findings and plan of care. Patient was seen and examined.
[2018-03-18 12:14] LABS: Glucose,Whole Blood 198 mg/dL (75-99)
[2018-03-18 13:43] VITALS: BP 137/63; PULSE 66; RESP 18
--- NOTE | 2018-03-18 20:03 | DS ---
DISCHARGE SUMMARY DISCHARGE MEDICATIONS: 1. Glucotrol 5 mg daily. 2. Lasix 40 mg daily. 3. Amlodipine 5 mg daily. 4. [place] 7.5 t.i.d. 5. NovoLog 4 units subcu a.c. t.i.d. 6. Levemir 12 units q.h.s. 7. Synthroid 150 daily. 8. Zestril 20 daily. 9. Mag oxide 200 daily. 10.Glucophage 1000 b.i.d. 11.Toprol-XL 50 daily. 12.Aldactone 25 daily. CONDITION: Stable. PROGNOSIS: Guarded. Ambulate as tolerated. DIET: Regular. DISCHARGE DIAGNOSES: 1. Amputation of the 2 toes on the right foot. 2. Congestive heart failure with acute exacerbation. 3. Hypothyroidism. 4. Insulin-dependent diabetes mellitus. 5. Hypertension. IV Lasix was given. He lost 30 pounds while admitted to the hospital. Electrolytes were replaced. He had a chronic anemia, hemoglobin 10.2 on discharge. He has diastolic acute on chronic heart failure and bilateral pleural effusions were seen. IV Lasix reduced these. Then he did not need thoracentesis. Continued to have improved breathing after losing 30 pounds. He was discharged home with clearance from Cardiology. MMODL / IJN: [id number] /
[2018-03-19] MEDS ORDERED: METOPROLOL SUCCINATE (ER) 50 MG TAB.ER.24H PO SCH (09:00)
--- NOTE | 2018-03-19 15:49 | P.PN ---
Subjective Progress Note Date: 03/18/18 (Late entry note) Principal diagnosis: Bilateral pleural effusion, acute exacerbation of CHF likely acute on chronic diastolic and systolic heart failure, peripheral arterial disease, hypertension hypertensive cardiovascular disease, type 2 diabetes mellitus, stage III renal failure chronic 03/18/2018, patient seen eval examined during the rounds care plan discussed with the and patient at present at bedside from respiratory standpoint doing well awake and alert patient is being followed by vascular surgery as well , labs reviewed medications reviewed radiographic studies reviewed as well, follow-up chest x-ray performed on March 17 reviewed there is very small pleural effusion seen with some interstitial edema 03/17/2018, patient seen eval examined during the rounds clinically patient has been doing well awake and alert breathing comfortably cuff congestion shortness of breath has been stable swelling in the lower extremity has improved as well the ultrasound of the chest performed has been reviewed very small amount of pleural fluid has been noted not enough to tap, these findings reviewed with the patient and present bedside at length 03/16/2018, patient seen eval examined during the rounds clinically patient is doing slightly better with improved respiratory status denies any cough or sputum production denies any chest pain white cell count remains normal no evidence of fever is seen patient is responding well with diuretics have lost 20 -25 pounds with diuresis, ultrasound finding reviewed given that patient has been responding very well will repeat the ultrasound before consideration of thoracentesis 77-year-old male seen eval examined on selective care this patient has worsening of shortness of breath for 2-3 day duration prior to that patient was hospitalized at [facility] patient underwent amputation of 2 toes at [facility], was discharged from there and has been progressively more and more short of breath and putting on a significant amount of swelling. According to the , he had been quite short of breath at the [facility] as well. He was treated with IV Lasix and breathing treatments. On discharge according to the was still quite bloated and short of breath, he was discharged with oral Lasix but not with any breathing treatments. Because he became more and more short of breath, he was seen in the primary care doctor's office to see if he could get some breathing treatments. While in the office a chest x-ray was performed which showed congestive heart failure, patient was then sent to [facility] and transferred here. A CT of the chest was performed there which revealed patchy groundglass pneumonitis bilaterally with segmental consolidation in the left lower lobe and right lower lobe with moderate sized bilateral pleural effusions. Troponin 0.017 BNP 3700 sodium 132, potassium 4.1, BUN 30, creatinine 0.4. White blood cell count 12.7, hemoglobin 9.9, platelet count 331. Blood pressure here 136/60 with a heart rate in the 60s, 97% on 3 L of oxygen. Temperature 98.2. Chest x-ray performed here showed worsening left basal air space disease with bilateral effusions greater on the left than the right. EKG shows normal sinus rhythm with nonspecific ST-T wave changes in the anterior leads. White blood cell count is normal, hemoglobin 9.7, platelet count 307. Sodium 132, potassium 4.1, BUN 27, creatinine 1.2. Magnesium 1.8. Troponins are negative 3. BNP level 3270, TSH is normal patient was initiated on IV Lasix in the emergency room. Patient still continues to feel short of breath, continues to have some peripheral edema. Does state that he is feeling somewhat better today, continues to have cough, clear sputum. Objective - Vital Signs Vital signs: Vital Signs Temp 97.2 F L 03/18/18 08:00 Pulse 66 03/18/18 14:27 Resp 18 03/18/18 14:27 BP 137/63 03/18/18 12:00 Pulse Ox 99 03/18/18 12:00 Intake & Output 03/18/18 03/19/18 03/19/18 18:59 06:59 18:59 Intake Total 600 Output Total 1000 Balance -400 Intake: Oral 600 Output: Urine 1000 Other: Voiding Method Toilet Urinal - Exam HEENT: Head is atraumatic, normocephalic. Pupils equal, round. Neck is supple. There is elevated jugular venous pressure. Neck is supple without any lymphadenopathy neck veins are prominent but no jugular venous distention noted HEART EXAMINATION: Heart S1, S2 normal. No murmur or gallop heard. CHEST EXAMINATION: Lungs reveal scattered coarse rhonchi with diminished air entry bilaterally ABDOMEN:Firm, mildly distended . Bowel sounds are heard. No organomegaly noted EXTREMITIES:2+ peripheral pulses with 1+ evidence of peripheral edema , amputation of the fourth and fifth toes on the left foot - Labs CBC & Chem 7: 03/16/18 05:34 03/16/18 05:34 Assessment and Plan Assessment: Acute exacerbation of CHF likely acute on chronic systolic heart failure Bilateral pleural effusion more so on the left side compared right side patient has been responding well with IV furosemide will monitor observe for now, no plans for thoracentesis, as repeat ultrasound as well as chest x-ray failed to reveal significant reaccumulation of worsening of fluid Hypertension hypertensive cardiovascular disease Diabetes mellitus Peripheral arterial disease with gangrene of the left foot toes is status post amputation Plan: Continue diuresis Reviewed echocardiogram -Reviewed ultrasound and chest x-ray finding Continue supportive care Do deep breathing sense incentive spirometry Recommendations pending plan of care as per clinical response of the patient, agree with discharge planning with follow-up in outpatient setting Time with Patient: Greater than 30
== END 2018-03-18 16:05 | disposition home health service (06) | DRG 291 ==
LOC: SUPCPDRO 20:50 → EC 20:50 → 6SEL 21:15
PROVIDERS: ADMIT Family Medicine; ATTEND Family Medicine
DX: I13.0 Hypertensive heart and chronic kidney disease with heart failure and stage 1 through stage 4 chronic kidney disease, or unspecified chronic kidney disease (principal); I50.43 Acute on chronic combined systolic (congestive) and diastolic (congestive) heart failure; J18.9 Pneumonia, unspecified organism; E11.52 Type 2 diabetes mellitus with diabetic peripheral angiopathy with gangrene; J44.0 Chronic obstructive pulmonary disease with (acute) lower respiratory infection; N18.3 Chronic kidney disease, stage 3 (moderate); D64.9 Anemia, unspecified; M19.90 Unspecified osteoarthritis, unspecified site; E03.9 Hypothyroidism, unspecified; E11.22 Type 2 diabetes mellitus with diabetic chronic kidney disease; Z79.899 Other long term (current) drug therapy; Z79.4 Long term (current) use of insulin; Z79.890 Hormone replacement therapy; Z90.49 Acquired absence of other specified parts of digestive tract; Z96.653 Presence of artificial knee joint, bilateral; Z89.422 Acquired absence of other left toe(s); Z79.891 Long term (current) use of opiate analgesic
CPT/HCPCS: 71046; 76604; 80053; 82553; 83036; 83735; 83880; 84443; 84484; 85025; 87045; 87046; 93005; 93306; 94760; 99285

== ENCOUNTER 2018-12-09 08:04 | Day surgery (SDC) | payer MEDICARE ==
[2018-12-07 13:22] VITALS: BMI 26.6
[~2018-12-09 08:04] MED LIST: LACTATED RINGERS 1,000 ML IV SCH
[2018-12-09 08:49] VITALS: TEMP 98.5
[2018-12-09 08:51] LABS: Glucose,Whole Blood 149 mg/dL (75-99)
[2018-12-09] MEDS ORDERED: LIDOCAINE 1% INJ 10MG/ML (20 ML MDV) ONE (08:59)
[2018-12-09] MEDS ORDERED: PROPOFOL 10 MG/ML 20 ML VIAL IV ONE (08:59)
--- NOTE | 2018-12-09 09:40 | P.PCN ---
Date of Procedure: 12/09/18 Procedure(s) Performed: PREOPERATIVE DIAGNOSIS: Rectal polyp POSTOPERATIVE DIAGNOSIS: Large rectal polyp, tortuous colon PROCEDURE: Incomplete colonoscopy with snare polypectomy of rectal polyp ANESTHESIA: MAC SURGEON: Rojelio Bond M.D. SPECIMENS: Rectal polyp ENDOSCOPIC PROCEDURE: The patient was placed on the endoscopy table in the left decubitus position. The Olympus colonoscope was inserted into the anus and passed under direct visualization to the mid to proximal sigmoid colon. The patient had significant tortuosity and I was unable to advance the scope proximal to that despite multiple attempts and maneuvers. The scope was withdrawn. The sigmoid colon and proximal rectum appeared normal. Starting at the dentate line was a recurrent polyp that measured approximately 4-5 cm in diameter covering approximately 30% of the circumference in that region. There was also some scarring from previous polypectomy at that location. This was removed in a piecemeal fashion using the snare with cautery technique. Some residual polypoid tissue was still present. The scope was withdrawn. The patient was taken to the recovery room in stable condition per anesthesia guidelines. RECOMMENDATIONS: Await biopsy results. Plan repeat colonoscopy 2-3 months. If unable to advance proximal to sigmoid Will consider barium enema following that.
[2018-12-09 09:43] VITALS: RESP 16
[2018-12-09 10:06] VITALS: BP 133/66; PULSE 60
[2018-12-09 10:15] LABS: Glucose,Whole Blood 138 mg/dL (75-99)
== END 2018-12-09 10:29 | disposition home or self-care (01) ==
LOC: ORWHC2ENDO 08:04
PROVIDERS: ATTEND Surgery
DX: D37.5 Neoplasm of uncertain behavior of rectum (principal); Q43.8 Other specified congenital malformations of intestine; Z86.010 Personal history of colon polyps; E11.9 Type 2 diabetes mellitus without complications; I11.0 Hypertensive heart disease with heart failure; I50.9 Heart failure, unspecified; E07.9 Disorder of thyroid, unspecified; E78.5 Hyperlipidemia, unspecified; N28.9 Disorder of kidney and ureter, unspecified; Z79.890 Hormone replacement therapy; Z79.899 Other long term (current) drug therapy; Z79.4 Long term (current) use of insulin; Z96.653 Presence of artificial knee joint, bilateral; Z89.512 Acquired absence of left leg below knee
CPT/HCPCS: 88305; 45338; J2001; J2704; 45385

== ENCOUNTER 2019-01-29 06:43 | Day surgery (SDC) | payer MEDICARE ==
[2019-01-26 14:04] VITALS: BMI 26.6
[~2019-01-29 06:43] MED LIST changes: +LIDOCAINE 1% 20 ML VIAL (10MG/ML) FOR IV START INTRADERMA PRN
[2019-01-29] MEDS ORDERED: LIDOCAINE 1% 20 ML VIAL (10MG/ML) FOR IV START INTRADERMA ONE (07:15)
[2019-01-29 07:22] VITALS: TEMP 98
[2019-01-29 07:25] LABS: Glucose,Whole Blood 102 mg/dL (75-99)
[2019-01-29] MEDS ORDERED: PROPOFOL 10 MG/ML 20 ML VIAL IV ONE (07:48)
--- NOTE | 2019-01-29 07:52 | P.GSHP ---
History of Present Illness H&P Date: 01/29/19 Chief Complaint: Colon polyp 78-year-old male known to our service. Patient here for colonoscopy. Patient with history of large rectal villous adenoma. This was partially excised on 12/09. Patient was unable to have a complete colonoscopy at that time. Last colonoscopy October 2016. Patient has had no bowel related complaints at this time. He states he feels that the polyp has shrunk in size. Last complete colonoscopy May 2016. 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/03/2018, jah knee replacements, 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, Past Anesthesia/Blood Transfusion Reactions: No Reported Reaction Smoking Status: Former smoker - Past Family History Mother Family Medical History: No Reported History Sister(s) Family Medical History: Cancer Medications and Allergies Home Medications Medication Instructions Recorded Confirmed Type metFORMIN HCL 1,000 mg PO BID 03/08/15 01/29/19 History Cyanocobalamin [Vitamin B-12] 500 mcg PO DAILY 03/13/18 01/29/19 History Insulin Glargine [Lantus] 10 unit SQ HS 03/13/18 01/29/19 History Levothyroxine Sodium [Synthroid] 150 mcg PO DAILY 03/13/18 01/29/19 History Magnesium Oxide [Mag-Ox] 250 mg PO DAILY 03/13/18 01/29/19 History Aspirin 81 mg PO DAILY chew 03/18/18 01/29/19 Rx Metoprolol Succinate (ER) [Toprol 50 mg PO DAILY #30 tab 03/18/18 01/29/19 Rx XL] Acetaminophen [Tylenol] 500 mg PO Q4-6H PRN 12/07/18 01/29/19 History Atorvastatin [Lipitor] 40 mg PO DAILY 12/07/18 01/29/19 History Cholecalciferol [Vitamin D3] 5,000 unit PO DAILY 12/07/18 01/29/19 History Furosemide [Lasix] 20 mg PO DAILY 12/07/18 01/29/19 History Gabapentin [Neurontin] 300 mg PO TID 12/07/18 01/29/19 History amLODIPine [Norvasc] 10 mg PO DAILY 12/07/18 01/29/19 History glipiZIDE [Glucotrol] 2.5 mg PO AC-BRKFST 12/07/18 01/29/19 History Sulfamethox-Tmp 800-160Mg [Bactrim 1 tab PO Q12HR 01/26/19 01/29/19 History DS 800-160 mg] Allergies Allergy/AdvReac Type Severity Reaction Status Date / Time No Known Allergies Allergy Verified 01/26/19 13:51 Surgical - Exam Vital Signs Temp Pulse Resp BP Pulse Ox 98.0 F 66 16 163/77 97 01/29/19 07:15 01/29/19 07:15 01/29/19 07:15 01/29/19 07:15 01/29/19 07:15 Physical exam: General: Well-developed, well-nourished HEENT: Normocephalic, sclerae nonicteric Abdomen: Nontender, nondistended Extremities: Left lower limb amputation Neuro: Alert and oriented Results - Labs Abnormal Lab Results - Last 24 Hours (Table) 01/29/19 Range/Units 07:13 POC Glucose (mg/dL) 102 H (75-99) mg/dL Assessment and Plan (1) Rectal polyp Narrative/Plan: Will proceed with colonoscopy at this time Current Visit: No Status: Acute Code(s): K62.1 - RECTAL POLYP SNOMED Code(s): 07754322
--- NOTE | 2019-01-29 08:25 | P.PCN ---
Date of Procedure: 01/29/19 Procedure(s) Performed: PREOPERATIVE DIAGNOSIS: Rectal polyp POSTOPERATIVE DIAGNOSIS: Rectal polyp, ascending colon polyp, descending colon polyp PROCEDURE: Colonoscopy with snare polypectomy and fulguration rectal polyp using argon beam customer sales service manager ANESTHESIA: MAC SURGEON: Rojelio Bond M.D. SPECIMENS: Polyps ENDOSCOPIC PROCEDURE: The patient was placed on the endoscopy table in the left decubitus position. The Olympus colonoscope was inserted into the anus and passed under direct visualization to the ileocecal valve. I could not evaluate the entire cecal base despite a variety of different attempts to manipulate the scope into that region. From a distance I could not see any definite abnormal ities there. In the mid ascending colon a small polyp was identified and removed using the snare with cautery technique. The remainder of the ascending transverse colon appeared normal. The descending colon another small polyp was seen and removed in a similar fashion. The remainder of the descending and sigmoid colon was normal. In the rectum distally the polyp that was previously identified was present. This measured 3 x 2 cm. There was evidence of scarring from previous polypectomy. This was then removed in a piecemeal fashion using the snare with cautery technique. The base was fulgurated using the argon beam customer sales service manager. The patient was taken to the recovery room in stable condition per anesthesia guidelines. RECOMMENDATIONS: Await biopsy results. Repeat flexible sigmoidoscopy 3 months.
[2019-01-29 08:37] VITALS: PULSE 59
[2019-01-29 08:53] VITALS: BP 154/75; RESP 18
== END 2019-01-29 08:53 | disposition home or self-care (01) ==
LOC: ORWHC2ENDO 06:43
PROVIDERS: ATTEND Surgery
DX: D12.2 Benign neoplasm of ascending colon (principal); D12.4 Benign neoplasm of descending colon; D37.5 Neoplasm of uncertain behavior of rectum; E78.5 Hyperlipidemia, unspecified; I25.10 Atherosclerotic heart disease of native coronary artery without angina pectoris; E11.22 Type 2 diabetes mellitus with diabetic chronic kidney disease; I13.0 Hypertensive heart and chronic kidney disease with heart failure and stage 1 through stage 4 chronic kidney disease, or unspecified chronic kidney disease; N18.9 Chronic kidney disease, unspecified; I50.9 Heart failure, unspecified; Z87.891 Personal history of nicotine dependence; E11.51 Type 2 diabetes mellitus with diabetic peripheral angiopathy without gangrene; Z79.4 Long term (current) use of insulin; L08.9 Local infection of the skin and subcutaneous tissue, unspecified; E07.9 Disorder of thyroid, unspecified; Z89.512 Acquired absence of left leg below knee; Z96.698 Presence of other orthopedic joint implants; Z79.890 Hormone replacement therapy; Z79.899 Other long term (current) drug therapy
CPT/HCPCS: 88305; 45385; J2704; 45382

== ENCOUNTER 2019-05-14 08:03 | Day surgery (SDC) | payer MEDICARE ==
[2019-05-12 10:17] VITALS: BMI 26.6
[~2019-05-14 08:03] MED LIST changes: -LIDOCAINE 1% 20 ML VIAL (10MG/ML) FOR IV START INTRADERMA PRN
[2019-05-14] MEDS ORDERED: NA PHOS,M-B/NA PHOS,DI-BA 133 ML ENEMA RECTAL ONE (08:25)
[2019-05-14 08:31] VITALS: RESP 16; TEMP 97
[2019-05-14] MEDS ORDERED: LIDOCAINE 1% INJ 10MG/ML (20 ML MDV) ONE (08:54)
[2019-05-14] MEDS ORDERED: PROPOFOL 10 MG/ML 20 ML VIAL IV ONE (08:54)
[2019-05-14] MEDS ORDERED: LIDOCAINE 1% 20 ML VIAL (10MG/ML) FOR IV START INTRADERMA ONE (08:54)
[2019-05-14 08:57] LABS: Glucose,Whole Blood 108 mg/dL (75-99)
--- NOTE | 2019-05-14 08:59 | P.GSHP ---
History of Present Illness H&P Date: 05/14/19 Chief Complaint: Rectal polyp Patient today for reevaluation rectal polyp. The patient had colonoscopy in November and in January. Both times the patient had a large polyp of the rectum that was removed in a piecemeal fashion and treated with the argon beam. The patient doing fine. No symptoms. Past Medical History Past Medical History: Coronary Artery Disease (CAD), Heart Failure, Diabetes Mellitus, Hyperlipidemia, Hypertension, Osteoarthritis (OA), Renal Disease, Skin Disorder, Thyroid Disorder, Vascular Disorder Additional Past Medical History / Comment(s): PVD, prosthesis left lower leg- uses cane, current rx for skin infection on rt lower leg, infection has cleared up. 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 Past Anesthesia/Blood Transfusion Reactions: No Reported Reaction Smoking Status: Former smoker - Past Family History Mother Family Medical History: No Reported History Sister(s) Family Medical History: Cancer Medications and Allergies Home Medications Medication Instructions Recorded Confirmed Type metFORMIN HCL 1,000 mg PO BID 03/08/15 05/14/19 History Cyanocobalamin [Vitamin B-12] 500 mcg PO DAILY 03/13/18 05/12/19 History Insulin Glargine [Lantus] 8 unit SQ HS 03/13/18 05/14/19 History Levothyroxine Sodium [Synthroid] 150 mcg PO DAILY 03/13/18 05/12/19 History Magnesium Oxide [Mag-Ox] 250 mg PO DAILY 03/13/18 05/12/19 History Aspirin 81 mg PO DAILY chew 03/18/18 05/12/19 Rx Metoprolol Succinate (ER) [Toprol 50 mg PO DAILY #30 tab 03/18/18 05/12/19 Rx XL] Acetaminophen [Tylenol] 500 mg PO Q4-6H PRN 12/07/18 05/14/19 History Atorvastatin [Lipitor] 40 mg PO HS 12/07/18 05/14/19 History Cholecalciferol [Vitamin D3] 5,000 unit PO DAILY 12/07/18 05/12/19 History Furosemide [Lasix] 40 mg PO DAILY 12/07/18 05/12/19 History Gabapentin [Neurontin] 300 mg PO TID 12/07/18 05/12/19 History amLODIPine [Norvasc] 10 mg PO DAILY 12/07/18 05/12/19 History glipiZIDE [Glucotrol] 2.5 mg PO AC-BRKFST 12/07/18 05/14/19 History Furosemide [Lasix] 20 mg PO Q2D 05/12/19 05/14/19 History Allergies Allergy/AdvReac Type Severity Reaction Status Date / Time No Known Allergies Allergy Verified 05/12/19 09:24 Surgical - Exam Vital Signs Temp Pulse Resp BP Pulse Ox 97.0 F L 58 L 16 152/67 98 05/14/19 08:30 05/14/19 08:30 05/14/19 08:30 05/14/19 08:30 05/14/19 08:30 Physical exam: General: Well-developed, well-nourished HEENT: Normocephalic, sclerae nonicteric Abdomen: Nontender, nondistended Extremities: Amputation noted Neuro: Alert and oriented Results - Labs Abnormal Lab Results - Last 24 Hours (Table) 05/14/19 Range/Units 08:49 POC Glucose (mg/dL) 108 H (75-99) mg/dL Assessment and Plan (1) Rectal polyp Narrative/Plan: Will proceed with flexible sigmoidoscopy with polypectomy and fulguration. Bleeding perforation and recurrence reviewed. He understands wished to proceed. Current Visit: No Status: Acute Code(s): K62.1 - RECTAL POLYP SNOMED Code(s): 63983497
--- NOTE | 2019-05-14 09:20 | P.PCN ---
Date of Procedure: 05/14/19 Procedure(s) Performed: PREOPERATIVE DIAGNOSIS: Rectal polyp POSTOPERATIVE DIAGNOSIS: Same PROCEDURE: Flex will sigmoidoscopy with polypectomy and fulguration ANESTHESIA: MAC SURGEON: Rojelio Bond M.D. SPECIMENS: None ENDOSCOPIC PROCEDURE: The patient was placed on the endoscopy table in the left decubitus position. The Olympus colonoscope was inserted into the anus and passed under direct visualization to the mid rectum. The patient's enema actually made the stool filled with loose liquid stool that was particulate in nature. We had difficulty evacuating the stool to fully evaluate the rectum. I was able to visualize a repeat recurrent or persistent polyp that was removed using the snare with polypectomy technique and the base of that area was fulgurated. Size of residual polyp felt to be approximately 1 cm however I could not fully visualize the rectum. Digital rectal examination was normal. The patient was taken to the recovery room in stable condition per anesthesia guidelines. RECOMMENDATIONS: Plan shorter-term follow-up flexible sigmoidoscopy in 3 months. We will consider either no fleets enema or formal bowel prep at that time.
[2019-05-14 09:41] LABS: Glucose,Whole Blood 103 mg/dL (75-99)
[2019-05-14 09:43] VITALS: BP 134/72; PULSE 51
== END 2019-05-14 10:14 | disposition home or self-care (01) ==
LOC: ORWHC2ENDO 08:03
PROVIDERS: ATTEND Surgery
DX: K62.1 Rectal polyp (principal); I11.0 Hypertensive heart disease with heart failure; I50.9 Heart failure, unspecified; I25.10 Atherosclerotic heart disease of native coronary artery without angina pectoris; E78.5 Hyperlipidemia, unspecified; E11.9 Type 2 diabetes mellitus without complications; E07.9 Disorder of thyroid, unspecified; M19.90 Unspecified osteoarthritis, unspecified site; I73.9 Peripheral vascular disease, unspecified; Z87.891 Personal history of nicotine dependence; Z79.82 Long term (current) use of aspirin; Z79.890 Hormone replacement therapy; Z79.4 Long term (current) use of insulin; Z79.899 Other long term (current) drug therapy; Z96.653 Presence of artificial knee joint, bilateral; Z89.512 Acquired absence of left leg below knee; Z97.14 Presence of artificial left leg (complete) (partial); Z80.9 Family history of malignant neoplasm, unspecified
CPT/HCPCS: 45346; 45338; J2001; J2704